=== PATIENT | female | born 1995 | race Caucasian/White ===

== ENCOUNTER 2016-03-21 10:56 | Emergency (ER) | payer BC, MEDICAID ==
[~2016-03-21 10:56] MED LIST: ACET50TA PO; IBUP-1114 PO; IBUP80TA PO; PRENATAL VITAMIN PO; STUACAP PO; TYLE500T78 PO
[2016-03-21] MEDS ORDERED: MORPHINE 2 MG/ML 1ML SYRINGE As Ordered ONE ×2 (11:47→13:43)
[2016-03-21] MEDS ORDERED: ONDANSETRON 4MG/2ML VIAL (J2405) As Ordered ONE (11:48)
[2016-03-21 12:08] LABS: BASO % 0.2 % (0.0-1.0); EOS # 0.1 K/mm3 (0.0-0.50); EOS % 1.3 % (0.0-3.0); LARGE UNSTAINED CELL # 0.2 K/mm3 (0.0-0.4); LARGE UNSTAINED CELL % 1.9 % (0.0-4.0); LYMPH # 1.3 K/mm3 (1.5-6.5); LYMPH % 12.9 % (24.0-44.0); MEAN CORPUSCULAR HEMOGLOBIN 28.6 pg (27.0-33.0); MEAN CORPUSCULAR HGB CONC 33.5 g/dl (32.0-36.5); MEAN CORPUSCULAR VOLUME 85.4 fl (80.0-96.0); MONO # 0.4 K/mm3 (0.0-0.8); MONO % 4.2 % (0.0-5.0); NEUTROPHILS # 8.2 K/mm3 (1.8-7.7); NEUTROPHILS % 79.5 % (36.0-66.0); PLATELET COUNT, AUTOMATED 357 k/mm3 (150-450); RED CELL DISTRIBUTION WIDTH 13.8 % (11.5-14.5); WHITE BLOOD COUNT 10.3 K/mm3 (4.0-10.0)
[2016-03-21 12:19] LABS: CONTROL LINE UCG INT CTR LINE PRESENT
[2016-03-21 12:21] LABS: ANION GAP 8 MEQ/L (8-16); BLOOD UREA NITROGEN 5 MG/DL (7-18); CALCIUM LEVEL 8.3 MG/DL (8.5-10.1); CARBON DIOXIDE LEVEL 28 MEQ/L (21-32); CHLORIDE LEVEL 100 MEQ/L (98-107); CREATININE FOR GFR 0.74 MG/DL (0.55-1.02); GLUCOSE, FASTING 107 MG/DL (70-105); POTASSIUM SERUM 3.5 MEQ/L (3.5-5.1); SODIUM LEVEL 136 MEQ/L (136-145)
--- NOTE | 2016-03-21 13:34 | REP ---
Clinical: Renal colic. Technique: Real time zambrano scale ultrasound examination using curved array transducer. Findings: With the exception of small renal cysts, the kidneys are normal in contour, size, and echogenicity without perinephric stranding, hydroureteronephrosis or nephrolithiasis. Right kidney measures 13.4 x 5.1 x 3.8 cm with approximately three cysts up to 12 mm. Left kidney measures to 0.6 x 4.6 x 5.9 cm with single 9 mm cyst. Bilateral ureteral jets to the bladder noted. The bladder itself is unremarkable. Incidental cholelithiasis. Impression: 1. Essentially normal bilateral kidneys with few scattered cysts. II. Cholelithiasis. Signed by Jermaine Vickers MD 03/21/2016 01:25 P
[2016-03-21] MEDS ORDERED: CIPROFLOXACIN/D5W 400 MG/200 ML BAG (J0744) As Ordered ONE (13:42)
[2016-03-21] MEDS ORDERED: ACETAMINOPHEN 325 MG TAB As Ordered ONE (15:44)
--- NOTE | 2016-03-21 16:00 | EDDOCDS ---
Physician Documentation [facility] Name: Kim Wells Age: 20 yrs Sex: Female : 1995 Arrival Date: 03/21/2016 Time: 10:56 Bed I3 / M3 Private MD: Ashu Barbosa Disposition: 03/21/16 15:25 Discharged to Home/Self Care. Impression: Low back pain - with renal cysts and [place] gallbladder stone, Urinary tract infection, site not specified. - Condition is Stable. - Discharge Instructions: Back Pain, Adult, Urinary Tract Infection, [id number], Back Pain, Adult, [id number]. - Prescriptions for Cipro 500 mg Oral Tablet - take 1 tablet by ORAL route every 12 hours; 14 tablet. Pyridium 200 mg Oral Tablet - take 1 tablet by ORAL route every 8 hours for 3 days; 9 tablet. Tylenol 325 mg Oral Tablet - take 2 tablet by ORAL route every 6 hours as needed; 1 bottle. Baclofen 10 mg Oral Tablet - take 1 tablet by ORAL route 3 times per day; 20 tablet. - Medication Reconciliation, Local Pharmacy Hours form. - Follow up: Ashu Barbosa DO; When: 1 - 2 days; Reason: Continuance of care. Follow up: Hema Cook DO; When: 4 - 5 days; Reason: Continuance of care. Follow up: Emergency Department; When: As needed; Reason: Worsening of conditions. - Problem is new. - Symptoms have improved. Historical: - Allergies: no known allergies; - Home Meds: 1. control patch - Social history: Smoking status: Patient uses tobacco products, light tobacco smoker. No barriers to communication noted, The patient speaks fluent Palauan. - Family history: Not pertinent. - : The pt / caregiver states he / she is not on anticoagulants. Home medication list is obtained from the patient. - Exposure Risk Screening:: None identified. 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 2 in. (157.48 cm) (R); 12:32 Pain 4/10; kr3 13:15 Temp 100.0; jam1 15:54 BP 114 / 62; Pulse 104; Resp 16; Temp 100.2; Pulse Ox 98% ; Pain 5/10; cjh 10:57 Body Mass Index 24.33 (60.33 kg, 157.48 cm) dd6 MDM: 11:39 Financial registration complete. lg 11:43 Ondansetron 4 mg IVP once ordered. dk1 11:43 IV Saline Lock ordered. dk1 11:44 morphine 2 mg IVP once ordered. dk1 11:44 NS 0.9% 1000 ml IV at bolus once ordered. dk1 11:45 Basic Metabolic Profile Ordered. EDMS 11:45 CBC with Diff Ordered. EDMS 11:45 Urinalysis Ordered. EDMS 11:45 UCG- In Lab Ordered. EDMS 11:45 Urine Culture Ordered. EDMS 12:25 Basic Metabolic Profile Reviewed. dk1 12:25 CBC with Diff Reviewed. dk1 12:25 Urinalysis Reviewed. dk1 12:25 UCG- In Lab Reviewed. dk1 12:26 US Renal Ordered. EDMS 13:36 morphine 2 mg IVP once ordered. dk1 13:36 Ciprofloxacin 400 mg IVPB at 200 mL/hr once over 60 mins ordered. dk1 13:36 -Blood Culture (Adults Only), peripheral from different site, or from device/port/PICC dk1 etc. if present ordered. 13:37 -Blood Culture Ordered. EDMS 13:54 [facility] Payment Agreement was scanned into [employer] and attached to record. lg 14:12 BLOOD CULTURES Ordered. EDMS 15:10 -Blood Culture (Adults Only), peripheral from different site, or from device/port/PICC [facility] etc. if present complete. 15:20 US Renal Reviewed. dk1 15:43 Acetaminophen Tablet 650 mg PO once ordered. dk1 Administered Medications: 12:01 Drug: Ondansetron 4 mg [ondansetron HCl 2 mg/mL intravenous solution (2 mL)] Route: kr3 IVP; Site: left antecubital; 12:32 Follow up: Response: Nausea is decreased kr3 12:01 Drug: morphine 2 mg [morphine 2 mg/mL intravenous cartridge (1 mL)] Route: IVP; Site: kr3 left antecubital; 12:32 Follow up: Pain 4/10 Adult; Response: Pain is decreased kr3 12:01 Drug: NS 0.9% 1000 ml [sodium chloride 0.9 % intravenous solution] Route: IV; Rate: kr3 bolus; Site: left antecubital; 13:46 Follow up: IV Status: Completed infusion; IV Intake: 1000ml kr3 13:50 Drug: morphine 2 mg Route: IVP; Site: left antecubital; [facility] 14:37 Follow up: Response: Confirmed pt not driving.; No Adverse Reaction; Pain is decreased; [facility] 06/27 14:10 Drug: Ciprofloxacin 400 mg [ciprofloxacin 400 mg/200 mL in 5 % dextrose intravenous kr3 piggyback] Route: IVPB; Rate: 200 mL/hr; Infused Over: 60 mins; Site: left antecubital; 15:52 Drug: Acetaminophen 650 mg [acetaminophen 325 mg tablet (2 tabs)] Route: PO; [facility] 15:57 Follow up: Response: Pt left department before re-evaluation is appropriate [facility] Signatures: Dispatcher [employer] EDRoshan Briceno RN RN jmk Scott, Debra, RN RN dls Ganter, LoriLee, Thanh Reg Tyrone Mcgarry PAOchoa PAOchoa [email or web address] Carmencita Mohr RN RN [facility] Polly Tony RN kr3 The chart was reviewed and I authenticate all verbal orders and agree with the evaluation and treatment provided.Corrections: (The following items were deleted from the chart) 11:12 11:10 Home Meds: none; vincenzo loya Attachments: 13:54 [facility] [place] Payment Agreement lg MTDD
--- NOTE | 2016-03-21 16:00 | EDDOCDS ---
Nurse's Notes [facility] Name: Kim Wells Age: 20 yrs Sex: Female : 1995 Arrival Date: 03/21/2016 Time: 10:56 Bed I3 / M3 Private MD: Ashu Barbosa Diagnosis: Low back pain-with renal cysts and [place] gallbladder stone;Urinary tract infection, site not specified Presentation: 03/21 11:08 Presenting complaint: Patient states: Pt presents with right sided flank pain x one dls week getting worse every day. Denies injury states she has urinary frequency. Acute neurological deficits are not present. Mechanism of Injury: No Mechanism of Injury. Adult Sepsis Screening: The patient does not have new or worsening altered mentation. Patient's respiratory rate is less than 22. Systolic blood pressure is greater than 100. Patient has a qSOFA score of 0- Negative Sepsis Screen. Suicide/Homicide risk assessment- the patient denies having any suicidal and/or homicidal ideations and does not present with any other emotional, behavioral or mental health complaints. 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 Transition of care: patient was not received from another setting of care. 11:08 Acuity: MACARIO Level 3 dls 11:08 Method Of Arrival: Walkin/Carried/Asstd dls Triage Assessment: 11:10 General: Appears uncomfortable, well developed, well nourished, Behavior is dls cooperative. Pain: Pain currently is 9 out of 10 on a pain scale. HIV screening NA for this visit Offered previously. 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 control patch - Social history: Smoking status: Patient uses tobacco products, light tobacco smoker. No barriers to communication noted, The patient speaks fluent Gabonese. - Family history: Not pertinent. - : The pt / caregiver states he / she is not on anticoagulants. Home medication list is obtained from the patient. - Exposure Risk Screening:: None identified. Screenin:06 Screening information is obtained from the patient. Fall risk: No risks identified. jmk Assistance ADL's: requires no assistance with activities of daily living. Abuse/DV Screen: The patient / caregiver reports he/she is: not in a situation that causes fear, pain or injury. Nutritional screening: No deficits noted. Advance Directives: Currently, there is no health care proxy. There is no active DNR order. There is no living will. There is no Power of Maintenance Planning Clerk. Advance directive information has not previously been placed in an [facility] medical record. home support is adequate. Assessment: 12:04 General: Appears Restless with discomfort. writhing about and mother assisting with jmk changed in position. Indicates right flank pain. Without redness , swelling or ecchymosis.. abd soft and non distended with bowel sounds present x 4. Odd affect, Immature presentation. GI: Abdomen is flat, non- distended Bowel sounds present X 4 quads. Abd is soft and non tender X 4 quads. Musculoskeletal: No deficits noted. 12:32 Reassessment: aroused from sleep easily, reports pain 4/10 but still having some nausea.kr3 13:27 General: Appears in no apparent distress, comfortable, Behavior is cooperative, [facility] requesting crackers for mother, blankets for self, blanket and crackers provided, water bottle noted at patient bedside, reviewed NPO, reports pain in right side after ultrasound 6/10, provider informed. 14:10 Reassessment: Patient appears in no apparent distress at this time. talking on phone, kr3 mother remains in room. 14:36 General: assisted with equipement to get oob to BR, gait steady, ambulates without [facility] assist required. 15:07 General: Appears in no apparent distress, comfortable, Behavior is appropriate for age, cjh cooperative, family at bedside, patient states feeling much better, awaiting dispo, gingerale provided per patient request. 15:54 General: reviewed discharge instructions with patient, obtained provider to answer [facility] questions regarding surgical consult, patient denies other needs, declines offer of additional assistance with discharge. Vital Signs: 10:57 BP 114 / 73; Pulse 105; Resp 18 S; Temp 99.3(O); Pulse Ox 99% on R/A; Weight 60.33 kg dd6 (R); Height 5 ft. 2 in. (157.48 cm) (R); 12:32 Pain 4/10; kr3 13:15 Temp 100.0; jam1 15:54 BP 114 / 62; Pulse 104; Resp 16; Temp 100.2; Pulse Ox 98% ; Pain 5/10; cjh 10:57 Body Mass Index 24.33 (60.33 kg, 157.48 cm) dd6 Vitals: 10:57 Log In Time: March 21, 2016 at 10:55. dd6 ED Course: 10:57 Patient visited by Himanshu Thompson, NEHEMIAH. dd6 10:57 Ashu Barbosa DO is Private Physician. dd6 10:57 Patient moved to Waiting dd6 10:58 Patient moved to Pre RCE dd6 11:09 Triage Initiated dls 11:33 Tyrone Mcgarry PA-C is PHCP. dk1 11:33 Nano Pearson MD is Attending Physician. dk1 11:33 Patient moved to Triage 3 kcs 11:34 Patient visited by Tyrone Mcgarry PA-C. dk1 11:46 Patient moved to I3 / M3 kcs 12:06 The patient / caregiver is instructed regarding the plan of care and ED course. jmk 12:06 Inserted saline lock: 20 gauge in left antecubital area. jmk 12:07 Patient visited by Roshan Delgadillo RN. jmk 12:32 Patient visited by Carmencita Castellanos PCA. jam1 12:40 Patient moved to Ultrasound sm5 13:05 Patient moved to I3 / M3 sm5 13:30 Patient visited by Carmencita Mohr RN. [facility] 13:50 US Renal Returned. EDMS 13:51 Patient visited by Carmencita Mohr RN. [facility] 13:54 [facility] Payment Agreement was scanned into [employer] and attached to record. lg 14:13 Patient visited by Carmencita Castellanos PCA. jam1 15:07 Patient visited by Carmencita Mohr RN. [facility] 15:15 PO fluids given. jam1 15:24 Ashu Barbosa DO is Referral Physician. dk1 15:25 Hema Cook DO is Referral Physician. dk1 15:54 Discontinued lock intact, bleeding controlled, pressure dressing applied, No [facility] redness/swelling at site. No procedures done that require assistance. Administered Medications: 12:01 Drug: Ondansetron 4 mg [ondansetron HCl 2 mg/mL intravenous solution (2 mL)] Route: kr3 IVP; Site: left antecubital; 12:32 Follow up: Response: Nausea is decreased kr3 12:01 Drug: morphine 2 mg [morphine 2 mg/mL intravenous cartridge (1 mL)] Route: IVP; Site: kr3 left antecubital; 12:32 Follow up: Pain 06/27 Adult; Response: Pain is decreased kr3 12:01 Drug: NS 0.9% 1000 ml [sodium chloride 0.9 % intravenous solution] Route: IV; Rate: kr3 bolus; Site: left antecubital; 13:46 Follow up: IV Status: Completed infusion; IV Intake: 1000ml kr3 13:50 Drug: morphine 2 mg Route: IVP; Site: left antecubital; [facility] 14:37 Follow up: Response: Confirmed pt not driving.; No Adverse Reaction; Pain is decreased; [facility] 06/27 14:10 Drug: Ciprofloxacin 400 mg [ciprofloxacin 400 mg/200 mL in 5 % dextrose intravenous kr3 piggyback] Route: IVPB; Rate: 200 mL/hr; Infused Over: 60 mins; Site: left antecubital; 15:52 Drug: Acetaminophen 650 mg [acetaminophen 325 mg tablet (2 tabs)] Route: PO; [facility] 15:57 Follow up: Response: Pt left department before re-evaluation is appropriate [facility] Intake: 13:46 IV: 1000.00ml; Total: 1000.00ml. kr3 Order Results: Lab Order: Basic Metabolic Profile; SPEC'M 03/21/16 11:56 Test: GLUCOSE, FASTING; Value: 107; Range: 70-105; Abnormal: Above high normal; Units: MG/DL; Status: F Test: BLOOD UREA NITROGEN; Value: 5; Range: 7-18; Abnormal: Below low normal; Units: MG/DL; Status: F Test: CREATININE FOR GFR; Value: 0.74; Range: 0.55-1.02; Units: MG/DL; Status: F Test: SODIUM LEVEL; Value: 136; Range: 136-145; Units: MEQ/L; Status: F Test: POTASSIUM SERUM; Value: 3.5; Range: 3.5-5.1; Units: MEQ/L; Status: F Test: CHLORIDE LEVEL; Value: 100; Range: 98-107; Units: MEQ/L; Status: F Test: CARBON DIOXIDE LEVEL; Value: 28; Range: 21-32; Units: MEQ/L; Status: F Test: ANION GAP; Value: 8; Range: 8-16; Units: MEQ/L; Status: F Test: CALCIUM LEVEL; Value: 8.3; Range: 8.5-10.1; Abnormal: Below low normal; Units: MG/DL; Status: F Lab Order: CBC with Diff; SPEC'M 03/21/16 11:56 Test: WHITE BLOOD COUNT; Value: 10.3; Range: 4.0-10.0; Abnormal: Above high normal; Units: K/mm3; Status: F Test: RED BLOOD COUNT; Value: 4.36; Range: 4.00-5.40; Units: M/mm3; Status: F Test: HEMOGLOBIN; Value: 12.5; Range: 12.0-16.0; Units: g/dl; Status: F Test: HEMATOCRIT; Value: 37.3; Range: 36.0-47.0; Units: %; Status: F Test: MEAN CORPUSCULAR VOLUME; Value: 85.4; Range: 80.0-96.0; Units: fl; Status: F Test: MEAN CORPUSCULAR HEMOGLOBIN; Value: 28.6; Range: 27.0-33.0; Units: pg; Status: F Test: MEAN CORPUSCULAR HGB CONC; Value: 33.5; Range: 32.0-36.5; Units: g/dl; Status: F Test: RED CELL DISTRIBUTION WIDTH; Value: 13.8; Range: 11.5-14.5; Units: %; Status: F Test: PLATELET COUNT, AUTOMATED; Value: 357; Range: 150-450; Units: k/mm3; Status: F Test: NEUTROPHILS %; Value: 79.5; Range: 36.0-66.0; Abnormal: Above high normal; Units: %; Status: F Test: LYMPH %; Value: 12.9; Range: 24.0-44.0; Abnormal: Below low normal; Units: %; Status: F Test: MONO %; Value: 4.2; Range: 0.0-5.0; Units: %; Status: F Test: EOS %; Value: 1.3; Range: 0.0-3.0; Units: %; Status: F Test: BASO %; Value: 0.2; Range: 0.0-1.0; Units: %; Status: F Test: LARGE UNSTAINED CELL %; Value: 1.9; Range: 0.0-4.0; Units: %; Status: F Test: NEUTROPHILS #; Value: 8.2; Range: 1.8-7.7; Abnormal: Above high normal; Units: K/mm3; Status: F Test: LYMPH #; Value: 1.3; Range: 1.5-6.5; Abnormal: Below low normal; Units: K/mm3; Status: F Test: MONO #; Value: 0.4; Range: 0.0-0.8; Units: K/mm3; Status: F Test: EOS #; Value: 0.1; Range: 0.0-0.50; Units: K/mm3; Status: F Test: BASO #; Value: 0.0; Range: 0.0-0.2; Units: K/mm3; Status: F Test: LARGE UNSTAINED CELL #; Value: 0.2; Range: 0.0-0.4; Units: K/mm3; Status: F Lab Order: Urinalysis; SPEC'M 03/21/16 11:56 Test: APPEARANCE, URINE; Value: CLOUDY; Range: CLEAR; Abnormal: Above high normal; Status: F Test: COLOR, URINE; Value: YELLOW; Range: YELLOW; Status: F Test: PH,URINE; Value: 6.0; Range: 5.0-9.0; Units: UNITS; Status: F Test: SPECIFIC GRAVITY URINE AUTO; Value: 1.013; Range: 1.002-1.035; Status: F Test: PROTEIN, URINE AUTO; Value: 1+; Range: NEGATIVE; Abnormal: Above high normal; Units: mg/dL; Status: F Test: GLUCOSE, URINE (UA) AUTO; Value: NEGATIVE; Range: NEGATIVE; Units: mg/dL; Status: F Test: KETONE, URINE AUTO; Value: NEGATIVE; Range: NEGATIVE; Units: mg/dL; Status: F Test: UROBILINOGEN, URINE AUTO; Value: 0.2; Range: 0.0-2.0; Units: mg/dL; Status: F Test: BILIRUBIN, URINE AUTO; Value: NEGATIVE; Range: NEGATIVE; Status: F Test: NITRITE, URINE AUTO; Value: NEGATIVE; Range: NEGATIVE; Status: F Test: LEUKOCYTE ESTERASE, URINE AUTO; Value: 3+; Range: NEGATIVE; Abnormal: Above high normal; Status: F Test: BLOOD, URINE BLOOD; Value: 1+; Range: NEGATIVE; Abnormal: Above high normal; Status: F Test: SPERM, URINE AUTO; Range: NONE; Status: I Test: WBC, URINE AUTO; Value: TNTC; Range: 0-3; Abnormal: Above high normal; Units: /HPF; Status: F Test: RBC, URINE AUTO; Value: 38; Range: 0-3; Abnormal: Above high normal; Units: /HPF; Status: F Test: BACTERIA, URINE AUTO; Value: 3+; Range: NEGATIVE; Abnormal: Above high normal; Status: F Test: SQUAMOUS EPITHELIAL CELL UR AU; Value: 10; Range: 0-6; Units: /HPF; Status: F Test: MUCUS, URINE; Value: SMALL; Range: NEGATIVE; Status: F Test: HYALINE CAST, URINE AUTO; Value: 0; Range: 0-1; Units: /LPF; Status: F Lab Order: UCG- In Lab; SPEC'M 03/21/16 11:56 Test: URINE PREG TEST; Value: NEGATIVE; Range: NEGATIVE; Status: F Radiology Order: US Renal Test: US Renal REASON FOR EXAMINATION: Renal colic; Clinical: Renal colic.; ; Technique: Real time zambrano scale ultrasound examination using curved array; transducer.; ; Findings:; With the exception of small renal cysts, the kidneys are normal in contour, size,; and echogenicity without perinephric stranding, hydroureteronephrosis or; nephrolithiasis. Right kidney measures 13.4 x 5.1 x 3.8 cm with approximately; three cysts up to 12 mm. Left kidney measures to 0.6 x 4.6 x 5.9 cm with single; 9 mm cyst. Bilateral ureteral jets to the bladder noted. The bladder itself is; unremarkable.; ; Incidental cholelithiasis.; ; Impression:; 1. Essentially normal bilateral kidneys with few scattered cysts.; II. Cholelithiasis.; ; ; Signed by; Jermaine Vickers MD 03/21/2016 01:25 P; Outcome: 14:10 Ultrasound Study completed. kr3 15:25 Discharge ordered by Provider. dk1 15:54 Discharge Assessment: Patient awake, alert and oriented x 3. No cognitive and/or cjh functional deficits noted. Patient verbalized understanding of disposition instructions. patient administered narcotics - yes. Pt provided with safe discharge. The following High Risk Discharge criteria are identified: None. Discharged to home ambulatory, with parent. with friend. Condition: good Condition: stable Condition: improved. Discharge instructions given to patient, Instructed on discharge instructions, follow up and referral plans. medication usage, Demonstrated understanding of instructions, medications, Pt was receptive of discharge instructions/ teaching. Prescriptions given X 4. Property :Personal belongings accompany Pt. 15:59 Patient left the ED. [facility] Signatures: Dispatcher [employer] EDMS Estee Lamar, RN RN Roshan WareRN RN Do Brunson RN RN Carmencita Freeman, TAMPING MACHINE OPERATOR TAMPING MACHINE OPERATOR jam1 Lemuel Mario, Reg Reg lg Charisse Barahona sm5 Polly Tony,RN RN kr3 Tyrone Mcgarry, PA-C PA-C dk1 Himanshu Thompson, TAMPING MACHINE OPERATOR TAMPING MACHINE OPERATOR dd6 Carmencita Mohr,RN RN [facility] Corrections: (The following items were deleted from the chart) 11:12 11:10 Home Meds: none; dls dls 13:29 13:27 General: Appears in no apparent distress, comfortable, Behavior is cooperative, [facility] requesting crackers for mother, blankets for self, reports pain in right side after ultrasound 08/27, provider informed. [facility] MTDD
--- NOTE | 2016-03-23 17:00 | EDDOCDS ---
Physician Documentation [facility] Name: Kim Wells Age: 20 yrs Sex: Female : 1995 Arrival Date: 03/21/2016 Time: 10:56 Bed I3 / M3 Private MD: Ashu Barbosa Disposition: 03/21/16 15:25 Discharged to Home/Self Care. Impression: Low back pain - with renal cysts and [place] gallbladder stone, Urinary tract infection, site not specified. - Condition is Stable. - Discharge Instructions: Back Pain, Adult, Urinary Tract Infection, [id number], Back Pain, Adult, [id number]. - Prescriptions for Cipro 500 mg Oral Tablet - take 1 tablet by ORAL route every 12 hours; 14 tablet. Pyridium 200 mg Oral Tablet - take 1 tablet by ORAL route every 8 hours for 3 days; 9 tablet. Tylenol 325 mg Oral Tablet - take 2 tablet by ORAL route every 6 hours as needed; 1 bottle. Baclofen 10 mg Oral Tablet - take 1 tablet by ORAL route 3 times per day; 20 tablet. - Medication Reconciliation, Local Pharmacy Hours form. - Follow up: Ashu Barbosa DO; When: 1 - 2 days; Reason: Continuance of care. Follow up: Hema Cook DO; When: 4 - 5 days; Reason: Continuance of care. Follow up: Emergency Department; When: As needed; Reason: Worsening of conditions. - Problem is new. - Symptoms have improved. Historical: - Allergies: no known allergies; - Home Meds: 1. control patch - Social history: Smoking status: Patient uses tobacco products, light tobacco smoker. No barriers to communication noted, The patient speaks fluent Bengali. - Family history: Not pertinent. - : The pt / caregiver states he / she is not on anticoagulants. Home medication list is obtained from the patient. - Exposure Risk Screening:: None identified. 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 2 in. (157.48 cm) (R); 12:32 Pain 4/10; kr3 13:15 Temp 100.0; jam1 15:54 BP 114 / 62; Pulse 104; Resp 16; Temp 100.2; Pulse Ox 98% ; Pain 5/10; cjh 10:57 Body Mass Index 24.33 (60.33 kg, 157.48 cm) dd6 MDM: 11:39 Financial registration complete. lg 11:43 Ondansetron 4 mg IVP once ordered. dk1 11:43 IV Saline Lock ordered. dk1 11:44 morphine 2 mg IVP once ordered. dk1 11:44 NS 0.9% 1000 ml IV at bolus once ordered. dk1 11:45 Basic Metabolic Profile Ordered. EDMS 11:45 CBC with Diff Ordered. EDMS 11:45 Urinalysis Ordered. EDMS 11:45 UCG- In Lab Ordered. EDMS 11:45 Urine Culture Ordered. EDMS 12:25 Basic Metabolic Profile Reviewed. dk1 12:25 CBC with Diff Reviewed. dk1 12:25 Urinalysis Reviewed. dk1 12:25 UCG- In Lab Reviewed. dk1 12:26 US Renal Ordered. EDMS 13:36 morphine 2 mg IVP once ordered. dk1 13:36 Ciprofloxacin 400 mg IVPB at 200 mL/hr once over 60 mins ordered. dk1 13:36 -Blood Culture (Adults Only), peripheral from different site, or from device/port/PICC dk1 etc. if present ordered. 13:37 -Blood Culture Ordered. EDMS 13:54 [facility] Payment Agreement was scanned into [employer]ated[employer] and attached to record. lg 14:12 BLOOD CULTURES Ordered. EDMS 15:10 -Blood Culture (Adults Only), peripheral from different site, or from device/port/PICC [facility] etc. if present complete. 15:20 US Renal Reviewed. dk1 15:43 Acetaminophen Tablet 650 mg PO once ordered. dk1 03/22 06:10 T-Sheet-- Draft Copy was scanned into [employer]ated[employer] and attached to record. lja Administered Medications: 03/21 12:01 Drug: Ondansetron 4 mg [ondansetron HCl 2 mg/mL intravenous solution (2 mL)] Route: kr3 IVP; Site: left antecubital; 12:32 Follow up: Response: Nausea is decreased kr3 12:01 Drug: morphine 2 mg [morphine 2 mg/mL intravenous cartridge (1 mL)] Route: IVP; Site: kr3 left antecubital; 12:32 Follow up: Pain 06/27 Adult; Response: Pain is decreased [facility] 12:01 Drug: NS 0.9% 1000 ml [sodium chloride 0.9 % intravenous solution] Route: IV; Rate: kr3 bolus; Site: left antecubital; 13:46 Follow up: IV Status: Completed infusion; IV Intake: 1000ml kr3 13:50 Drug: morphine 2 mg Route: IVP; Site: left antecubital; [facility] 14:37 Follow up: Response: Confirmed pt not driving.; No Adverse Reaction; Pain is decreased; [facility] 06/27 14:10 Drug: Ciprofloxacin 400 mg [ciprofloxacin 400 mg/200 mL in 5 % dextrose intravenous kr3 piggyback] Route: IVPB; Rate: 200 mL/hr; Infused Over: 60 mins; Site: left antecubital; 15:52 Drug: Acetaminophen 650 mg [acetaminophen 325 mg tablet (2 tabs)] Route: PO; [facility] 15:57 Follow up: Response: Pt left department before re-evaluation is appropriate [facility] Signatures: Dispatcher [employer] EDMS Roshan Delgadillo RN RN jmk Scott, Debra, RN RN dls Ganter, LoriLee, Reg Reg lg Keyes, David PA-Scooby PA-Scooby [email or web address] Carmencita Mohr RN RN [facility] Shaji, Polly Ramirez RN kr3 The chart was reviewed and I authenticate all verbal orders and agree with the evaluation and treatment provided.Corrections: (The following items were deleted from the chart) 11:12 11:10 Home Meds: none; vincenzo loya Attachments: 13:54 [facility] Payment Agreement lg 03/22 06:10 T-Sheet-- Draft Copy demetrius Chart Complete MTDD
--- NOTE | 2016-03-23 17:00 | EDDOCDS ---
Physician Documentation [facility] Name: Kim Wells Age: 20 yrs Sex: Female : 1995 Arrival Date: 03/21/2016 Time: 10:56 Bed I3 / M3 Private MD: Ashu Barbosa Disposition: 03/21/16 15:25 Discharged to Home/Self Care. Impression: Low back pain - with renal cysts and [place] gallbladder stone, Urinary tract infection, site not specified. - Condition is Stable. - Discharge Instructions: Back Pain, Adult, Urinary Tract Infection, [id number], Back Pain, Adult, [id number]. - Prescriptions for Cipro 500 mg Oral Tablet - take 1 tablet by ORAL route every 12 hours; 14 tablet. Pyridium 200 mg Oral Tablet - take 1 tablet by ORAL route every 8 hours for 3 days; 9 tablet. Tylenol 325 mg Oral Tablet - take 2 tablet by ORAL route every 6 hours as needed; 1 bottle. Baclofen 10 mg Oral Tablet - take 1 tablet by ORAL route 3 times per day; 20 tablet. - Medication Reconciliation, Local Pharmacy Hours form. - Follow up: Ashu Barbosa DO; When: 1 - 2 days; Reason: Continuance of care. Follow up: eHma Cook DO; When: 4 - 5 days; Reason: Continuance of care. Follow up: Emergency Department; When: As needed; Reason: Worsening of conditions. - Problem is new. - Symptoms have improved. Historical: - Allergies: no known allergies; - Home Meds: 1. control patch - Social history: Smoking status: Patient uses tobacco products, light tobacco smoker. No barriers to communication noted, The patient speaks fluent Slovak. - Family history: Not pertinent. - : The pt / caregiver states he / she is not on anticoagulants. Home medication list is obtained from the patient. - Exposure Risk Screening:: None identified. 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 2 in. (157.48 cm) (R); 12:32 Pain 4/10; kr3 13:15 Temp 100.0; jam1 15:54 BP 114 / 62; Pulse 104; Resp 16; Temp 100.2; Pulse Ox 98% ; Pain 5/10; cjh 10:57 Body Mass Index 24.33 (60.33 kg, 157.48 cm) dd6 MDM: 11:39 Financial registration complete. lg 11:43 Ondansetron 4 mg IVP once ordered. dk1 11:43 IV Saline Lock ordered. dk1 11:44 morphine 2 mg IVP once ordered. dk1 11:44 NS 0.9% 1000 ml IV at bolus once ordered. dk1 11:45 Basic Metabolic Profile Ordered. EDMS 11:45 CBC with Diff Ordered. EDMS 11:45 Urinalysis Ordered. EDMS 11:45 UCG- In Lab Ordered. EDMS 11:45 Urine Culture Ordered. EDMS 12:25 Basic Metabolic Profile Reviewed. dk1 12:25 CBC with Diff Reviewed. dk1 12:25 Urinalysis Reviewed. dk1 12:25 UCG- In Lab Reviewed. dk1 12:26 US Renal Ordered. EDMS 13:36 morphine 2 mg IVP once ordered. dk1 13:36 Ciprofloxacin 400 mg IVPB at 200 mL/hr once over 60 mins ordered. dk1 13:36 -Blood Culture (Adults Only), peripheral from different site, or from device/port/PICC dk1 etc. if present ordered. 13:37 -Blood Culture Ordered. EDMS 13:54 [facility] Payment Agreement was scanned into [employer] and attached to record. lg 14:12 BLOOD CULTURES Ordered. EDMS 15:10 -Blood Culture (Adults Only), peripheral from different site, or from device/port/PICC [facility] etc. if present complete. 15:20 US Renal Reviewed. dk1 15:43 Acetaminophen Tablet 650 mg PO once ordered. dk1 03/22 06:10 T-Sheet-- Draft Copy was scanned into [employer] and attached to record. lja Administered Medications: 03/21 12:01 Drug: Ondansetron 4 mg [ondansetron HCl 2 mg/mL intravenous solution (2 mL)] Route: kr3 IVP; Site: left antecubital; 12:32 Follow up: Response: Nausea is decreased kr3 12:01 Drug: morphine 2 mg [morphine 2 mg/mL intravenous cartridge (1 mL)] Route: IVP; Site: kr3 left antecubital; 12:32 Follow up: Pain 06/27 Adult; Response: Pain is decreased [facility] 12:01 Drug: NS 0.9% 1000 ml [sodium chloride 0.9 % intravenous solution] Route: IV; Rate: kr3 bolus; Site: left antecubital; 13:46 Follow up: IV Status: Completed infusion; IV Intake: 1000ml kr3 13:50 Drug: morphine 2 mg Route: IVP; Site: left antecubital; [facility] 14:37 Follow up: Response: Confirmed pt not driving.; No Adverse Reaction; Pain is decreased; [facility] 06/27 14:10 Drug: Ciprofloxacin 400 mg [ciprofloxacin 400 mg/200 mL in 5 % dextrose intravenous kr3 piggyback] Route: IVPB; Rate: 200 mL/hr; Infused Over: 60 mins; Site: left antecubital; 15:52 Drug: Acetaminophen 650 mg [acetaminophen 325 mg tablet (2 tabs)] Route: PO; [facility] 15:57 Follow up: Response: Pt left department before re-evaluation is appropriate [facility] Signatures: Dispatcher [employer] EDMS Roshan Delgadillo RN RN jmk Scott, Debra, RN RN dls Ganter, LoriLee, Reg Reg lg Keyes, David PA-Scooby PA-Scooby [email or web address] Carmencita Mohr RN RN [facility] Shaji, Polly Ramirez RN kr3 The chart was reviewed and I authenticate all verbal orders and agree with the evaluation and treatment provided.Corrections: (The following items were deleted from the chart) 11:12 11:10 Home Meds: none; vincenzo loya Attachments: 13:54 [facility] Payment Agreement lg 03/22 06:10 T-Sheet-- Draft Copy demetrius Chart Complete MTDD
--- NOTE | 2016-03-23 17:00 | EDDOCDS ---
Nurse's Notes [facility] Name: Kim Wells Age: 20 yrs Sex: Female : 1995 Arrival Date: 03/21/2016 Time: 10:56 Bed I3 / M3 Private MD: Ashu Barbosa Diagnosis: Low back pain-with renal cysts and [place] gallbladder stone;Urinary tract infection, site not specified Presentation: 03/21 11:08 Presenting complaint: Patient states: Pt presents with right sided flank pain x one dls week getting worse every day. Denies injury states she has urinary frequency. Acute neurological deficits are not present. Mechanism of Injury: No Mechanism of Injury. Adult Sepsis Screening: The patient does not have new or worsening altered mentation. Patient's respiratory rate is less than 22. Systolic blood pressure is greater than 100. Patient has a qSOFA score of 0- Negative Sepsis Screen. Suicide/Homicide risk assessment- the patient denies having any suicidal and/or homicidal ideations and does not present with any other emotional, behavioral or mental health complaints. Status: Patient is not a protective services case worker or dependent. Transition of care: patient was not received from another setting of care. 11:08 Acuity: MACARIO Level 3 dls 11:08 Method Of Arrival: Walkin/Carried/Asstd dls Triage Assessment: 11:10 General: Appears uncomfortable, well developed, well nourished, Behavior is dls cooperative. Pain: Pain currently is 9 out of 10 on a pain scale. HIV screening NA for this visit Offered previously. COUNTER CHECKER: 11:10 LMP 02/18/2016 dls Historical: - Allergies: no known allergies; - Home Meds: 1. control patch - Social history: Smoking status: Patient uses tobacco products, light tobacco smoker. No barriers to communication noted, The patient speaks fluent Congolese. - Family history: Not pertinent. - : The pt / caregiver states he / she is not on anticoagulants. Home medication list is obtained from the patient. - Exposure Risk Screening:: None identified. Screenin:06 Screening information is obtained from the patient. Fall risk: No risks identified. jmk Assistance ADL's: requires no assistance with activities of daily living. Abuse/DV Screen: The patient / caregiver reports he/she is: not in a situation that causes fear, pain or injury. Nutritional screening: No deficits noted. Advance Directives: Currently, there is no health care proxy. There is no active DNR order. There is no living will. There is no Power of Physical Therapy Manager. Advance directive information has not previously been placed in an [facility] medical record. home support is adequate. Assessment: 12:04 General: Appears Restless with discomfort. writhing about and mother assisting with jmk changed in position. Indicates right flank pain. Without redness , swelling or ecchymosis.. abd soft and non distended with bowel sounds present x 4. Odd affect, Immature presentation. GI: Abdomen is flat, non- distended Bowel sounds present X 4 quads. Abd is soft and non tender X 4 quads. Musculoskeletal: No deficits noted. 12:32 Reassessment: aroused from sleep easily, reports pain 4/10 but still having some nausea.kr3 13:27 General: Appears in no apparent distress, comfortable, Behavior is cooperative, [facility] requesting crackers for mother, blankets for self, blanket and crackers provided, water bottle noted at patient bedside, reviewed NPO, reports pain in right side after ultrasound 6/10, provider informed. 14:10 Reassessment: Patient appears in no apparent distress at this time. talking on phone, kr3 mother remains in room. 14:36 General: assisted with equipement to get oob to BR, gait steady, ambulates without [facility] assist required. 15:07 General: Appears in no apparent distress, comfortable, Behavior is appropriate for age, cjh cooperative, family at bedside, patient states feeling much better, awaiting dispo, gingerale provided per patient request. 15:54 General: reviewed discharge instructions with patient, obtained provider to answer [facility] questions regarding surgical consult, patient denies other needs, declines offer of additional assistance with discharge. Vital Signs: 10:57 BP 114 / 73; Pulse 105; Resp 18 S; Temp 99.3(O); Pulse Ox 99% on R/A; Weight 60.33 kg dd6 (R); Height 5 ft. 2 in. (157.48 cm) (R); 12:32 Pain 4/10; kr3 13:15 Temp 100.0; jam1 15:54 BP 114 / 62; Pulse 104; Resp 16; Temp 100.2; Pulse Ox 98% ; Pain 5/10; cjh 10:57 Body Mass Index 24.33 (60.33 kg, 157.48 cm) dd6 Vitals: 10:57 Log In Time: March 21, 2016 at 10:55. dd6 ED Course: 10:57 Patient visited by Himanshu Thompson PCA. dd6 10:57 Ashu Barbosa DO is Private Physician. dd6 10:57 Patient moved to Waiting dd6 10:58 Patient moved to Pre RCE dd6 11:09 Triage Initiated dls 11:33 Tyrone Mcgarry PA-C is PHCP. dk1 11:33 Nano Pearson MD is Attending Physician. dk1 11:33 Patient moved to Triage 3 kcs 11:34 Patient visited by Tyrone Mcgarry PA-C. dk1 11:46 Patient moved to I3 / M3 kcs 12:06 The patient / caregiver is instructed regarding the plan of care and ED course. jmk 12:06 Inserted saline lock: 20 gauge in left antecubital area. jmk 12:07 Patient visited by Roshan Delgadillo RN. jmk 12:32 Patient visited by Carmencita Castellanos PCA. jam1 12:40 Patient moved to Ultrasound sm5 13:05 Patient moved to I3 / M3 sm5 13:30 Patient visited by Carmencita Mohr RN. [facility] 13:50 US Renal Returned. EDMS 13:51 Patient visited by Carmencita Mohr RN. [facility] 13:54 [facility] Payment Agreement was scanned into [employer] and attached to record. lg 14:13 Patient visited by Carmencita Castellanos PCA. jam1 15:07 Patient visited by Carmencita Mohr RN. [facility] 15:15 PO fluids given. jam1 15:24 Ashu Barbosa DO is Referral Physician. dk1 15:25 Hema Cook DO is Referral Physician. dk1 15:54 Discontinued lock intact, bleeding controlled, pressure dressing applied, No [facility] redness/swelling at site. No procedures done that require assistance. 03/22 06:10 T-Sheet-- Draft Copy was scanned into [employer] and attached to record. lja Administered Medications: 03/21 12:01 Drug: Ondansetron 4 mg [ondansetron HCl 2 mg/mL intravenous solution (2 mL)] Route: kr3 IVP; Site: left antecubital; 12:32 Follow up: Response: Nausea is decreased kr3 12:01 Drug: morphine 2 mg [morphine 2 mg/mL intravenous cartridge (1 mL)] Route: IVP; Site: kr3 left antecubital; 12:32 Follow up: Pain 410 Adult; Response: Pain is decreased kr3 12:01 Drug: NS 0.9% 1000 ml [sodium chloride 0.9 % intravenous solution] Route: IV; Rate: kr3 bolus; Site: left antecubital; 13:46 Follow up: IV Status: Completed infusion; IV Intake: 1000ml kr3 13:50 Drug: morphine 2 mg Route: IVP; Site: left antecubital; [facility] 14:37 Follow up: Response: Confirmed pt not driving.; No Adverse Reaction; Pain is decreased; [facility] 06/27 14:10 Drug: Ciprofloxacin 400 mg [ciprofloxacin 400 mg/200 mL in 5 % dextrose intravenous kr3 piggyback] Route: IVPB; Rate: 200 mL/hr; Infused Over: 60 mins; Site: left antecubital; 15:52 Drug: Acetaminophen 650 mg [acetaminophen 325 mg tablet (2 tabs)] Route: PO; [facility] 15:57 Follow up: Response: Pt left department before re-evaluation is appropriate [facility] Intake: 13:46 IV: 1000.00ml; Total: 1000.00ml. kr3 Order Results: Lab Order: Basic Metabolic Profile; SPEC'M 03/21/16 11:56 Test: GLUCOSE, FASTING; Value: 107; Range: 70-105; Abnormal: Above high normal; Units: MG/DL; Status: F Test: BLOOD UREA NITROGEN; Value: 5; Range: 7-18; Abnormal: Below low normal; Units: MG/DL; Status: F Test: CREATININE FOR GFR; Value: 0.74; Range: 0.55-1.02; Units: MG/DL; Status: F Test: SODIUM LEVEL; Value: 136; Range: 136-145; Units: MEQ/L; Status: F Test: POTASSIUM SERUM; Value: 3.5; Range: 3.5-5.1; Units: MEQ/L; Status: F Test: CHLORIDE LEVEL; Value: 100; Range: 98-107; Units: MEQ/L; Status: F Test: CARBON DIOXIDE LEVEL; Value: 28; Range: 21-32; Units: MEQ/L; Status: F Test: ANION GAP; Value: 8; Range: 8-16; Units: MEQ/L; Status: F Test: CALCIUM LEVEL; Value: 8.3; Range: 8.5-10.1; Abnormal: Below low normal; Units: MG/DL; Status: F Lab Order: CBC with Diff; SPEC'M 03/21/16 11:56 Test: WHITE BLOOD COUNT; Value: 10.3; Range: 4.0-10.0; Abnormal: Above high normal; Units: K/mm3; Status: F Test: RED BLOOD COUNT; Value: 4.36; Range: 4.00-5.40; Units: M/mm3; Status: F Test: HEMOGLOBIN; Value: 12.5; Range: 12.0-16.0; Units: g/dl; Status: F Test: HEMATOCRIT; Value: 37.3; Range: 36.0-47.0; Units: %; Status: F Test: MEAN CORPUSCULAR VOLUME; Value: 85.4; Range: 80.0-96.0; Units: fl; Status: F Test: MEAN CORPUSCULAR HEMOGLOBIN; Value: 28.6; Range: 27.0-33.0; Units: pg; Status: F Test: MEAN CORPUSCULAR HGB CONC; Value: 33.5; Range: 32.0-36.5; Units: g/dl; Status: F Test: RED CELL DISTRIBUTION WIDTH; Value: 13.8; Range: 11.5-14.5; Units: %; Status: F Test: PLATELET COUNT, AUTOMATED; Value: 357; Range: 150-450; Units: k/mm3; Status: F Test: NEUTROPHILS %; Value: 79.5; Range: 36.0-66.0; Abnormal: Above high normal; Units: %; Status: F Test: LYMPH %; Value: 12.9; Range: 24.0-44.0; Abnormal: Below low normal; Units: %; Status: F Test: MONO %; Value: 4.2; Range: 0.0-5.0; Units: %; Status: F Test: EOS %; Value: 1.3; Range: 0.0-3.0; Units: %; Status: F Test: BASO %; Value: 0.2; Range: 0.0-1.0; Units: %; Status: F Test: LARGE UNSTAINED CELL %; Value: 1.9; Range: 0.0-4.0; Units: %; Status: F Test: NEUTROPHILS #; Value: 8.2; Range: 1.8-7.7; Abnormal: Above high normal; Units: K/mm3; Status: F Test: LYMPH #; Value: 1.3; Range: 1.5-6.5; Abnormal: Below low normal; Units: K/mm3; Status: F Test: MONO #; Value: 0.4; Range: 0.0-0.8; Units: K/mm3; Status: F Test: EOS #; Value: 0.1; Range: 0.0-0.50; Units: K/mm3; Status: F Test: BASO #; Value: 0.0; Range: 0.0-0.2; Units: K/mm3; Status: F Test: LARGE UNSTAINED CELL #; Value: 0.2; Range: 0.0-0.4; Units: K/mm3; Status: F Lab Order: Urinalysis; SPEC'M 03/21/16 11:56 Test: APPEARANCE, URINE; Value: CLOUDY; Range: CLEAR; Abnormal: Above high normal; Status: F Test: COLOR, URINE; Value: YELLOW; Range: YELLOW; Status: F Test: PH,URINE; Value: 6.0; Range: 5.0-9.0; Units: UNITS; Status: F Test: SPECIFIC GRAVITY URINE AUTO; Value: 1.013; Range: 1.002-1.035; Status: F Test: PROTEIN, URINE AUTO; Value: 1+; Range: NEGATIVE; Abnormal: Above high normal; Units: mg/dL; Status: F Test: GLUCOSE, URINE (UA) AUTO; Value: NEGATIVE; Range: NEGATIVE; Units: mg/dL; Status: F Test: KETONE, URINE AUTO; Value: NEGATIVE; Range: NEGATIVE; Units: mg/dL; Status: F Test: UROBILINOGEN, URINE AUTO; Value: 0.2; Range: 0.0-2.0; Units: mg/dL; Status: F Test: BILIRUBIN, URINE AUTO; Value: NEGATIVE; Range: NEGATIVE; Status: F Test: NITRITE, URINE AUTO; Value: NEGATIVE; Range: NEGATIVE; Status: F Test: LEUKOCYTE ESTERASE, URINE AUTO; Value: 3+; Range: NEGATIVE; Abnormal: Above high normal; Status: F Test: BLOOD, URINE BLOOD; Value: 1+; Range: NEGATIVE; Abnormal: Above high normal; Status: F Test: SPERM, URINE AUTO; Range: NONE; Status: I Test: WBC, URINE AUTO; Value: TNTC; Range: 0-3; Abnormal: Above high normal; Units: /HPF; Status: F Test: RBC, URINE AUTO; Value: 38; Range: 0-3; Abnormal: Above high normal; Units: /HPF; Status: F Test: BACTERIA, URINE AUTO; Value: 3+; Range: NEGATIVE; Abnormal: Above high normal; Status: F Test: SQUAMOUS EPITHELIAL CELL UR AU; Value: 10; Range: 0-6; Units: /HPF; Status: F Test: MUCUS, URINE; Value: SMALL; Range: NEGATIVE; Status: F Test: HYALINE CAST, URINE AUTO; Value: 0; Range: 0-1; Units: /LPF; Status: F Lab Order: Urine Culture; SPEC'M 03/21/16 11:56 Test: URINE CULTURE; Value: ORGANISM 1: ESCHERICHIA COLI; Status: F Test: URINE CULTURE; Value: ESCHERICHIA COLI; Status: F Test: URINE CULTURE; Value: COLONY COUNT CFU/ml >100,000; Status: F Test: URINE CULTURE; Value: GRAM NEG SENSI - VITEK 80; Status: F Test: URINE CULTURE; Value: Method: VIT2; Status: F Test: URINE CULTURE; Value: EXTD BRD SPCTRM BETA LACTAMASE -; Status: F Test: URINE CULTURE; Value: TRIMETHOPRIM/SULFAMETHOXAZOLE <=20 S; Status: F Test: URINE CULTURE; Value: AMPICILLIN <=2 S; Status: F Test: URINE CULTURE; Value: GENTAMICIN <=1 S; Status: F Test: URINE CULTURE; Value: NITROFURANTOIN <=16 S; Status: F Test: URINE CULTURE; Value: CEFAZOLIN <=4 S; Status: F Test: URINE CULTURE; Value: LEVOFLOXACIN <=0.12 S; Status: F Test: URINE CULTURE; Value: TOBRAMYCIN <=1 S; Status: F Test: URINE CULTURE; Value: CEFTRIAXONE <=1 S; Status: F Test: URINE CULTURE; Value: CEFTAZIDIME <=1 S; Status: F Test: URINE CULTURE; Value: AMPICILLIN/SULBACTAM <=2 S; Status: F Test: URINE CULTURE; Value: PIPERACILLIN/TAZOBACTAM <=4 S; Status: F Test: URINE CULTURE; Value: AZTREONAM <=1 S; Status: F Test: URINE CULTURE; Value: ERTAPENEM <=0.5 S; Status: F Test: URINE CULTURE; Value: MEROPENEM <=0.25 S; Status: F Test: URINE CULTURE; Value: TIGECYCLINE <=0.5 S; Status: F Test: URINE CULTURE; Value: CEFEPIME <=1 S; Status: F Lab Order: UCG- In Lab; SPEC'M 03/21/16 11:56 Test: URINE PREG TEST; Value: NEGATIVE; Range: NEGATIVE; Status: F Lab Order: -Blood Culture; SPEC'M 03/21/16 13:56 Test: BLOOD CULTURE; Value: No growth after 24 hours . All specimens observed; Status: F Test: BLOOD CULTURE; Value: for 5 days. Results final at that time.; Status: F Test: BLOOD CULTURE; Value: No Growth after 48 hours. All Specimens observed; Status: F Test: BLOOD CULTURE; Value: for 7 days. Results final at that time.; Status: F Lab Order: BLOOD CULTURES; SPEC'M 03/21/16 13:56 Test: BLOOD CULTURE; Value: No growth after 24 hours . All specimens observed; Status: F Test: BLOOD CULTURE; Value: for 5 days. Results final at that time.; Status: F Test: BLOOD CULTURE; Value: No Growth after 48 hours. All Specimens observed; Status: F Test: BLOOD CULTURE; Value: for 7 days. Results final at that time.; Status: F Radiology Order: US Renal Test: US Renal REASON FOR EXAMINATION: Renal colic; Clinical: Renal colic.; ; Technique: Real time zambrano scale ultrasound examination using curved array; transducer.; ; Findings:; With the exception of small renal cysts, the kidneys are normal in contour, size,; and echogenicity without perinephric stranding, hydroureteronephrosis or; nephrolithiasis. Right kidney measures 13.4 x 5.1 x 3.8 cm with approximately; three cysts up to 12 mm. Left kidney measures to 0.6 x 4.6 x 5.9 cm with single; 9 mm cyst. Bilateral ureteral jets to the bladder noted. The bladder itself is; unremarkable.; ; Incidental cholelithiasis.; ; Impression:; 1. Essentially normal bilateral kidneys with few scattered cysts.; II. Cholelithiasis.; ; ; Signed by; Jermaine Vickers MD 03/21/2016 01:25 P; Outcome: 14:10 Ultrasound Study completed. kr3 15:25 Discharge ordered by Provider. dk1 15:54 Discharge Assessment: Patient awake, alert and oriented x 3. No cognitive and/or [facility] functional deficits noted. Patient verbalized understanding of disposition instructions. patient administered narcotics - yes. Pt provided with safe discharge. The following High Risk Discharge criteria are identified: None. Discharged to home ambulatory, with parent. with friend. Condition: good Condition: stable Condition: improved. Discharge instructions given to patient, Instructed on discharge instructions, follow up and referral plans. medication usage, Demonstrated understanding of instructions, medications, Pt was receptive of discharge instructions/ teaching. Prescriptions given X 4. Property :Personal belongings accompany Pt. 15:59 Patient left the ED. [facility] Signatures: Dispatcher [employer] EDMS Estee Lamar RN RN Roshan Ware RN RN jmk Scott, Debra, RN RN dls Murphy, Jane, TEST CENTER ADMINISTRATOR TEST CENTER ADMINISTRATOR jam1 Lemuel Mario, Reg Reg lg [place], Charisse sm5 Polly Tony,RN RN kr3 Tyrone Mcgarry, JACK PAOchoa dk1 Himanshu Thompson, TEST CENTER ADMINISTRATOR TEST CENTER ADMINISTRATOR dd6 Carmencita MohrRN RN [facility] Jeannette Girard Corrections: (The following items were deleted from the chart) 11:12 11:10 Home Meds: none; dls dls 13:29 13:27 General: Appears in no apparent distress, comfortable, Behavior is cooperative, [facility] requesting crackers for mother, blankets for self, reports pain in right side after ultrasound 08/27, provider informed. [facility] Chart Complete MTDD
--- NOTE | 2016-03-24 15:25 | EDDOCDS ---
Physician Documentation [facility] Name: Kim Wells Age: 20 yrs Sex: Female : 1995 Arrival Date: 03/21/2016 Time: 10:56 Bed I3 / M3 Private MD: Ashu Barbosa Disposition: 03/21/16 15:25 Discharged to Home/Self Care. Impression: Low back pain - with renal cysts and [place] gallbladder stone, Urinary tract infection, site not specified. - Condition is Stable. - Discharge Instructions: Back Pain, Adult, Urinary Tract Infection, [id number], Back Pain, Adult, [id number]. - Prescriptions for Cipro 500 mg Oral Tablet - take 1 tablet by ORAL route every 12 hours; 14 tablet. Pyridium 200 mg Oral Tablet - take 1 tablet by ORAL route every 8 hours for 3 days; 9 tablet. Tylenol 325 mg Oral Tablet - take 2 tablet by ORAL route every 6 hours as needed; 1 bottle. Baclofen 10 mg Oral Tablet - take 1 tablet by ORAL route 3 times per day; 20 tablet. - Medication Reconciliation, Local Pharmacy Hours form. - Follow up: Ashu Barbosa DO; When: 1 - 2 days; Reason: Continuance of care. Follow up: Hema Cook DO; When: 4 - 5 days; Reason: Continuance of care. Follow up: Emergency Department; When: As needed; Reason: Worsening of conditions. - Problem is new. - Symptoms have improved. Historical: - Allergies: no known allergies; - Home Meds: 1. control patch - Social history: Smoking status: Patient uses tobacco products, light tobacco smoker. No barriers to communication noted, The patient speaks fluent Serbian. - Family history: Not pertinent. - : The pt / caregiver states he / she is not on anticoagulants. Home medication list is obtained from the patient. - Exposure Risk Screening:: None identified. 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 2 in. (157.48 cm) (R); 12:32 Pain 4/10; kr3 13:15 Temp 100.0; jam1 15:54 BP 114 / 62; Pulse 104; Resp 16; Temp 100.2; Pulse Ox 98% ; Pain 5/10; cjh 10:57 Body Mass Index 24.33 (60.33 kg, 157.48 cm) dd6 MDM: 11:39 Financial registration complete. lg 11:43 Ondansetron 4 mg IVP once ordered. dk1 11:43 IV Saline Lock ordered. dk1 11:44 morphine 2 mg IVP once ordered. dk1 11:44 NS 0.9% 1000 ml IV at bolus once ordered. dk1 11:45 Basic Metabolic Profile Ordered. EDMS 11:45 CBC with Diff Ordered. EDMS 11:45 Urinalysis Ordered. EDMS 11:45 UCG- In Lab Ordered. EDMS 11:45 Urine Culture Ordered. EDMS 12:25 Basic Metabolic Profile Reviewed. dk1 12:25 CBC with Diff Reviewed. dk1 12:25 Urinalysis Reviewed. dk1 12:25 UCG- In Lab Reviewed. dk1 12:26 US Renal Ordered. EDMS 13:36 morphine 2 mg IVP once ordered. dk1 13:36 Ciprofloxacin 400 mg IVPB at 200 mL/hr once over 60 mins ordered. dk1 13:36 -Blood Culture (Adults Only), peripheral from different site, or from device/port/PICC dk1 etc. if present ordered. 13:37 -Blood Culture Ordered. EDMS 13:54 [facility] Payment Agreement was scanned into [employer] and attached to record. lg 14:12 BLOOD CULTURES Ordered. EDMS 15:10 -Blood Culture (Adults Only), peripheral from different site, or from device/port/PICC [facility] etc. if present complete. 15:20 US Renal Reviewed. dk1 15:43 Acetaminophen Tablet 650 mg PO once ordered. dk1 03/22 06:10 T-Sheet-- Draft Copy was scanned into [employer] and attached to record. lja Administered Medications: 03/21 12:01 Drug: Ondansetron 4 mg [ondansetron HCl 2 mg/mL intravenous solution (2 mL)] Route: kr3 IVP; Site: left antecubital; 12:32 Follow up: Response: Nausea is decreased kr3 12:01 Drug: morphine 2 mg [morphine 2 mg/mL intravenous cartridge (1 mL)] Route: IVP; Site: kr3 left antecubital; 12:32 Follow up: Pain 06/27 Adult; Response: Pain is decreased [facility] 12:01 Drug: NS 0.9% 1000 ml [sodium chloride 0.9 % intravenous solution] Route: IV; Rate: kr3 bolus; Site: left antecubital; 13:46 Follow up: IV Status: Completed infusion; IV Intake: 1000ml kr3 13:50 Drug: morphine 2 mg Route: IVP; Site: left antecubital; [facility] 14:37 Follow up: Response: Confirmed pt not driving.; No Adverse Reaction; Pain is decreased; [facility] 06/27 14:10 Drug: Ciprofloxacin 400 mg [ciprofloxacin 400 mg/200 mL in 5 % dextrose intravenous kr3 piggyback] Route: IVPB; Rate: 200 mL/hr; Infused Over: 60 mins; Site: left antecubital; 15:52 Drug: Acetaminophen 650 mg [acetaminophen 325 mg tablet (2 tabs)] Route: PO; [facility] 15:57 Follow up: Response: Pt left department before re-evaluation is appropriate [facility] Signatures: Dispatcher [employer] EDMS Roshan Delgadillo RN RN jmk Scott, Debra, RN RN dls Ganter, LoriLee, Reg Reg lg Keyes, David PA-Scooby PA-Scooby [email or web address] Carmencita Mohr RN RN [facility] Shaji, Polly Ramirez RN kr3 The chart was reviewed and I authenticate all verbal orders and agree with the evaluation and treatment provided.Corrections: (The following items were deleted from the chart) 11:12 11:10 Home Meds: none; vincenzo loya Attachments: 13:54 [facility] Payment Agreement lg 03/22 06:10 T-Sheet-- Draft Copy demetrius MTDD
--- NOTE | 2016-03-24 15:25 | EDDOCDS ---
Physician Documentation [facility] Name: Kim Wells Age: 20 yrs Sex: Female : 1995 Arrival Date: 03/21/2016 Time: 10:56 Bed I3 / M3 Private MD: Ashu Barbosa Disposition: 03/21/16 15:25 Discharged to Home/Self Care. Impression: Low back pain - with renal cysts and [place] gallbladder stone, Urinary tract infection, site not specified. - Condition is Stable. - Discharge Instructions: Back Pain, Adult, Urinary Tract Infection, [id number], Back Pain, Adult, [id number]. - Prescriptions for Cipro 500 mg Oral Tablet - take 1 tablet by ORAL route every 12 hours; 14 tablet. Pyridium 200 mg Oral Tablet - take 1 tablet by ORAL route every 8 hours for 3 days; 9 tablet. Tylenol 325 mg Oral Tablet - take 2 tablet by ORAL route every 6 hours as needed; 1 bottle. Baclofen 10 mg Oral Tablet - take 1 tablet by ORAL route 3 times per day; 20 tablet. - Medication Reconciliation, Local Pharmacy Hours form. - Follow up: Ashu Barbosa DO; When: 1 - 2 days; Reason: Continuance of care. Follow up: Hema Cook DO; When: 4 - 5 days; Reason: Continuance of care. Follow up: Emergency Department; When: As needed; Reason: Worsening of conditions. - Problem is new. - Symptoms have improved. Historical: - Allergies: no known allergies; - Home Meds: 1. control patch - Social history: Smoking status: Patient uses tobacco products, light tobacco smoker. No barriers to communication noted, The patient speaks fluent Serbian. - Family history: Not pertinent. - : The pt / caregiver states he / she is not on anticoagulants. Home medication list is obtained from the patient. - Exposure Risk Screening:: None identified. 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 2 in. (157.48 cm) (R); 12:32 Pain 4/10; kr3 13:15 Temp 100.0; jam1 15:54 BP 114 / 62; Pulse 104; Resp 16; Temp 100.2; Pulse Ox 98% ; Pain 5/10; cjh 10:57 Body Mass Index 24.33 (60.33 kg, 157.48 cm) dd6 MDM: 11:39 Financial registration complete. lg 11:43 Ondansetron 4 mg IVP once ordered. dk1 11:43 IV Saline Lock ordered. dk1 11:44 morphine 2 mg IVP once ordered. dk1 11:44 NS 0.9% 1000 ml IV at bolus once ordered. dk1 11:45 Basic Metabolic Profile Ordered. EDMS 11:45 CBC with Diff Ordered. EDMS 11:45 Urinalysis Ordered. EDMS 11:45 UCG- In Lab Ordered. EDMS 11:45 Urine Culture Ordered. EDMS 12:25 Basic Metabolic Profile Reviewed. dk1 12:25 CBC with Diff Reviewed. dk1 12:25 Urinalysis Reviewed. dk1 12:25 UCG- In Lab Reviewed. dk1 12:26 US Renal Ordered. EDMS 13:36 morphine 2 mg IVP once ordered. dk1 13:36 Ciprofloxacin 400 mg IVPB at 200 mL/hr once over 60 mins ordered. dk1 13:36 -Blood Culture (Adults Only), peripheral from different site, or from device/port/PICC dk1 etc. if present ordered. 13:37 -Blood Culture Ordered. EDMS 13:54 [facility] Payment Agreement was scanned into [employer] and attached to record. lg 14:12 BLOOD CULTURES Ordered. EDMS 15:10 -Blood Culture (Adults Only), peripheral from different site, or from device/port/PICC [facility] etc. if present complete. 15:20 US Renal Reviewed. dk1 15:43 Acetaminophen Tablet 650 mg PO once ordered. dk1 03/22 06:10 T-Sheet-- Draft Copy was scanned into [employer] and attached to record. lja Administered Medications: 03/21 12:01 Drug: Ondansetron 4 mg [ondansetron HCl 2 mg/mL intravenous solution (2 mL)] Route: kr3 IVP; Site: left antecubital; 12:32 Follow up: Response: Nausea is decreased kr3 12:01 Drug: morphine 2 mg [morphine 2 mg/mL intravenous cartridge (1 mL)] Route: IVP; Site: kr3 left antecubital; 12:32 Follow up: Pain 06/27 Adult; Response: Pain is decreased [facility] 12:01 Drug: NS 0.9% 1000 ml [sodium chloride 0.9 % intravenous solution] Route: IV; Rate: kr3 bolus; Site: left antecubital; 13:46 Follow up: IV Status: Completed infusion; IV Intake: 1000ml kr3 13:50 Drug: morphine 2 mg Route: IVP; Site: left antecubital; [facility] 14:37 Follow up: Response: Confirmed pt not driving.; No Adverse Reaction; Pain is decreased; [facility] 06/27 14:10 Drug: Ciprofloxacin 400 mg [ciprofloxacin 400 mg/200 mL in 5 % dextrose intravenous kr3 piggyback] Route: IVPB; Rate: 200 mL/hr; Infused Over: 60 mins; Site: left antecubital; 15:52 Drug: Acetaminophen 650 mg [acetaminophen 325 mg tablet (2 tabs)] Route: PO; [facility] 15:57 Follow up: Response: Pt left department before re-evaluation is appropriate [facility] Signatures: Dispatcher [employer] EDMS Roshan Delgadillo RN RN jmk Scott, Debra, RN RN dls Ganter, LoriLee, Reg Reg lg Keyes, David PA-Scooby PA-Scooby [email or web address] Carmencita Mohr RN RN [facility] Shaji, Polly Ramirez RN kr3 The chart was reviewed and I authenticate all verbal orders and agree with the evaluation and treatment provided.Corrections: (The following items were deleted from the chart) 11:12 11:10 Home Meds: none; vincenzo loya Attachments: 13:54 [facility] Payment Agreement lg 03/22 06:10 T-Sheet-- Draft Copy demetrius Chart Complete MTDD
--- NOTE | 2016-03-24 15:25 | EDDOCDS ---
Physician Documentation [facility] Name: Kim Wells Age: 20 yrs Sex: Female : 1995 Arrival Date: 03/21/2016 Time: 10:56 Bed I3 / M3 Private MD: Ashu Barbosa Disposition: 03/21/16 15:25 Discharged to Home/Self Care. Impression: Low back pain - with renal cysts and [place] gallbladder stone, Urinary tract infection, site not specified. - Condition is Stable. - Discharge Instructions: Back Pain, Adult, Urinary Tract Infection, [id number], Back Pain, Adult, [id number]. - Prescriptions for Cipro 500 mg Oral Tablet - take 1 tablet by ORAL route every 12 hours; 14 tablet. Pyridium 200 mg Oral Tablet - take 1 tablet by ORAL route every 8 hours for 3 days; 9 tablet. Tylenol 325 mg Oral Tablet - take 2 tablet by ORAL route every 6 hours as needed; 1 bottle. Baclofen 10 mg Oral Tablet - take 1 tablet by ORAL route 3 times per day; 20 tablet. - Medication Reconciliation, Local Pharmacy Hours form. - Follow up: Ashu Barbosa DO; When: 1 - 2 days; Reason: Continuance of care. Follow up: Hema Cook DO; When: 4 - 5 days; Reason: Continuance of care. Follow up: Emergency Department; When: As needed; Reason: Worsening of conditions. - Problem is new. - Symptoms have improved. Historical: - Allergies: no known allergies; - Home Meds: 1. control patch - Social history: Smoking status: Patient uses tobacco products, light tobacco smoker. No barriers to communication noted, The patient speaks fluent Occitan. - Family history: Not pertinent. - : The pt / caregiver states he / she is not on anticoagulants. Home medication list is obtained from the patient. - Exposure Risk Screening:: None identified. 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 2 in. (157.48 cm) (R); 12:32 Pain 4/10; kr3 13:15 Temp 100.0; jam1 15:54 BP 114 / 62; Pulse 104; Resp 16; Temp 100.2; Pulse Ox 98% ; Pain 5/10; cjh 10:57 Body Mass Index 24.33 (60.33 kg, 157.48 cm) dd6 MDM: 11:39 Financial registration complete. lg 11:43 Ondansetron 4 mg IVP once ordered. dk1 11:43 IV Saline Lock ordered. dk1 11:44 morphine 2 mg IVP once ordered. dk1 11:44 NS 0.9% 1000 ml IV at bolus once ordered. dk1 11:45 Basic Metabolic Profile Ordered. EDMS 11:45 CBC with Diff Ordered. EDMS 11:45 Urinalysis Ordered. EDMS 11:45 UCG- In Lab Ordered. EDMS 11:45 Urine Culture Ordered. EDMS 12:25 Basic Metabolic Profile Reviewed. dk1 12:25 CBC with Diff Reviewed. dk1 12:25 Urinalysis Reviewed. dk1 12:25 UCG- In Lab Reviewed. dk1 12:26 US Renal Ordered. EDMS 13:36 morphine 2 mg IVP once ordered. dk1 13:36 Ciprofloxacin 400 mg IVPB at 200 mL/hr once over 60 mins ordered. dk1 13:36 -Blood Culture (Adults Only), peripheral from different site, or from device/port/PICC dk1 etc. if present ordered. 13:37 -Blood Culture Ordered. EDMS 13:54 [facility] Payment Agreement was scanned into [employer] and attached to record. lg 14:12 BLOOD CULTURES Ordered. EDMS 15:10 -Blood Culture (Adults Only), peripheral from different site, or from device/port/PICC [facility] etc. if present complete. 15:20 US Renal Reviewed. dk1 15:43 Acetaminophen Tablet 650 mg PO once ordered. dk1 03/22 06:10 T-Sheet-- Draft Copy was scanned into [employer] and attached to record. lja Administered Medications: 03/21 12:01 Drug: Ondansetron 4 mg [ondansetron HCl 2 mg/mL intravenous solution (2 mL)] Route: kr3 IVP; Site: left antecubital; 12:32 Follow up: Response: Nausea is decreased kr3 12:01 Drug: morphine 2 mg [morphine 2 mg/mL intravenous cartridge (1 mL)] Route: IVP; Site: kr3 left antecubital; 12:32 Follow up: Pain 06/27 Adult; Response: Pain is decreased [facility] 12:01 Drug: NS 0.9% 1000 ml [sodium chloride 0.9 % intravenous solution] Route: IV; Rate: kr3 bolus; Site: left antecubital; 13:46 Follow up: IV Status: Completed infusion; IV Intake: 1000ml kr3 13:50 Drug: morphine 2 mg Route: IVP; Site: left antecubital; [facility] 14:37 Follow up: Response: Confirmed pt not driving.; No Adverse Reaction; Pain is decreased; [facility] 06/27 14:10 Drug: Ciprofloxacin 400 mg [ciprofloxacin 400 mg/200 mL in 5 % dextrose intravenous kr3 piggyback] Route: IVPB; Rate: 200 mL/hr; Infused Over: 60 mins; Site: left antecubital; 15:52 Drug: Acetaminophen 650 mg [acetaminophen 325 mg tablet (2 tabs)] Route: PO; [facility] 15:57 Follow up: Response: Pt left department before re-evaluation is appropriate [facility] Signatures: Dispatcher [employer] EDMS Roshan Delgadillo RN RN jmk Scott, Debra, RN RN dls Ganter, LoriLee, Reg Reg lg Keyes, David PA-Scooby PA-Scooby [email or web address] Carmencita Mohr RN RN [facility] Shaji, Polly Ramirez RN kr3 The chart was reviewed and I authenticate all verbal orders and agree with the evaluation and treatment provided.Corrections: (The following items were deleted from the chart) 11:12 11:10 Home Meds: none; vincenzo loya Attachments: 13:54 [facility] Payment Agreement lg 03/22 06:10 T-Sheet-- Draft Copy demetrius Chart Complete MTDD
--- NOTE | 2016-03-24 15:25 | EDDOCDS ---
Nurse's Notes [facility] Name: Kim Wells Age: 20 yrs Sex: Female : 1995 Arrival Date: 03/21/2016 Time: 10:56 Bed I3 / M3 Private MD: Ashu Barbosa Diagnosis: Low back pain-with renal cysts and [place] gallbladder stone;Urinary tract infection, site not specified Presentation: 03/21 11:08 Presenting complaint: Patient states: Pt presents with right sided flank pain x one dls week getting worse every day. Denies injury states she has urinary frequency. Acute neurological deficits are not present. Mechanism of Injury: No Mechanism of Injury. Adult Sepsis Screening: The patient does not have new or worsening altered mentation. Patient's respiratory rate is less than 22. Systolic blood pressure is greater than 100. Patient has a qSOFA score of 0- Negative Sepsis Screen. Suicide/Homicide risk assessment- the patient denies having any suicidal and/or homicidal ideations and does not present with any other emotional, behavioral or mental health complaints. Status: Patient is not a career services director or dependent. Transition of care: patient was not received from another setting of care. 11:08 Acuity: MACARIO Level 3 dls 11:08 Method Of Arrival: Walkin/Carried/Asstd dls Triage Assessment: 11:10 General: Appears uncomfortable, well developed, well nourished, Behavior is dls cooperative. Pain: Pain currently is 9 out of 10 on a pain scale. HIV screening NA for this visit Offered previously. CLAY WASHER: 11:10 LMP 02/18/2016 dls Historical: - Allergies: no known allergies; - Home Meds: 1. control patch - Social history: Smoking status: Patient uses tobacco products, light tobacco smoker. No barriers to communication noted, The patient speaks fluent Tajik. - Family history: Not pertinent. - : The pt / caregiver states he / she is not on anticoagulants. Home medication list is obtained from the patient. - Exposure Risk Screening:: None identified. Screenin:06 Screening information is obtained from the patient. Fall risk: No risks identified. jmk Assistance ADL's: requires no assistance with activities of daily living. Abuse/DV Screen: The patient / caregiver reports he/she is: not in a situation that causes fear, pain or injury. Nutritional screening: No deficits noted. Advance Directives: Currently, there is no health care proxy. There is no active DNR order. There is no living will. There is no Power of Pellet Press Operator. Advance directive information has not previously been placed in an [facility] medical record. home support is adequate. Assessment: 12:04 General: Appears Restless with discomfort. writhing about and mother assisting with jmk changed in position. Indicates right flank pain. Without redness , swelling or ecchymosis.. abd soft and non distended with bowel sounds present x 4. Odd affect, Immature presentation. GI: Abdomen is flat, non- distended Bowel sounds present X 4 quads. Abd is soft and non tender X 4 quads. Musculoskeletal: No deficits noted. 12:32 Reassessment: aroused from sleep easily, reports pain 4/10 but still having some nausea.kr3 13:27 General: Appears in no apparent distress, comfortable, Behavior is cooperative, [facility] requesting crackers for mother, blankets for self, blanket and crackers provided, water bottle noted at patient bedside, reviewed NPO, reports pain in right side after ultrasound 6/10, provider informed. 14:10 Reassessment: Patient appears in no apparent distress at this time. talking on phone, kr3 mother remains in room. 14:36 General: assisted with equipement to get oob to BR, gait steady, ambulates without [facility] assist required. 15:07 General: Appears in no apparent distress, comfortable, Behavior is appropriate for age, cjh cooperative, family at bedside, patient states feeling much better, awaiting dispo, gingerale provided per patient request. 15:54 General: reviewed discharge instructions with patient, obtained provider to answer [facility] questions regarding surgical consult, patient denies other needs, declines offer of additional assistance with discharge. Vital Signs: 10:57 BP 114 / 73; Pulse 105; Resp 18 S; Temp 99.3(O); Pulse Ox 99% on R/A; Weight 60.33 kg dd6 (R); Height 5 ft. 2 in. (157.48 cm) (R); 12:32 Pain 4/10; kr3 13:15 Temp 100.0; jam1 15:54 BP 114 / 62; Pulse 104; Resp 16; Temp 100.2; Pulse Ox 98% ; Pain 5/10; cjh 10:57 Body Mass Index 24.33 (60.33 kg, 157.48 cm) dd6 Vitals: 10:57 Log In Time: March 21, 2016 at 10:55. dd6 ED Course: 10:57 Patient visited by Himanshu Thompson PCA. dd6 10:57 Ashu Barbosa DO is Private Physician. dd6 10:57 Patient moved to Waiting dd6 10:58 Patient moved to Pre RCE dd6 11:09 Triage Initiated dls 11:33 Tyrone Mcgarry PA-C is PHCP. dk1 11:33 Nano Pearson MD is Attending Physician. dk1 11:33 Patient moved to Triage 3 kcs 11:34 Patient visited by Tyrone Mcgarry PA-C. dk1 11:46 Patient moved to I3 / M3 kcs 12:06 The patient / caregiver is instructed regarding the plan of care and ED course. jmk 12:06 Inserted saline lock: 20 gauge in left antecubital area. jmk 12:07 Patient visited by Roshan Delgadillo RN. jmk 12:32 Patient visited by Carmencita Castellanos PCA. jam1 12:40 Patient moved to Ultrasound sm5 13:05 Patient moved to I3 / M3 sm5 13:30 Patient visited by Carmencita Mohr RN. [facility] 13:50 US Renal Returned. EDMS 13:51 Patient visited by Carmencita Mohr RN. [facility] 13:54 [facility] Payment Agreement was scanned into [employer] and attached to record. lg 14:13 Patient visited by Carmencita Castellanos PCA. jam1 15:07 Patient visited by Carmencita Mohr RN. [facility] 15:15 PO fluids given. jam1 15:24 Ashu Barbosa DO is Referral Physician. dk1 15:25 Hema Cook DO is Referral Physician. dk1 15:54 Discontinued lock intact, bleeding controlled, pressure dressing applied, No [facility] redness/swelling at site. No procedures done that require assistance. 03/22 06:10 T-Sheet-- Draft Copy was scanned into [employer] and attached to record. lja Administered Medications: 03/21 12:01 Drug: Ondansetron 4 mg [ondansetron HCl 2 mg/mL intravenous solution (2 mL)] Route: kr3 IVP; Site: left antecubital; 12:32 Follow up: Response: Nausea is decreased kr3 12:01 Drug: morphine 2 mg [morphine 2 mg/mL intravenous cartridge (1 mL)] Route: IVP; Site: kr3 left antecubital; 12:32 Follow up: Pain 410 Adult; Response: Pain is decreased kr3 12:01 Drug: NS 0.9% 1000 ml [sodium chloride 0.9 % intravenous solution] Route: IV; Rate: kr3 bolus; Site: left antecubital; 13:46 Follow up: IV Status: Completed infusion; IV Intake: 1000ml kr3 13:50 Drug: morphine 2 mg Route: IVP; Site: left antecubital; [facility] 14:37 Follow up: Response: Confirmed pt not driving.; No Adverse Reaction; Pain is decreased; [facility] 06/27 14:10 Drug: Ciprofloxacin 400 mg [ciprofloxacin 400 mg/200 mL in 5 % dextrose intravenous kr3 piggyback] Route: IVPB; Rate: 200 mL/hr; Infused Over: 60 mins; Site: left antecubital; 15:52 Drug: Acetaminophen 650 mg [acetaminophen 325 mg tablet (2 tabs)] Route: PO; [facility] 15:57 Follow up: Response: Pt left department before re-evaluation is appropriate [facility] Intake: 13:46 IV: 1000.00ml; Total: 1000.00ml. kr3 Order Results: Lab Order: Basic Metabolic Profile; SPEC'M 03/21/16 11:56 Test: GLUCOSE, FASTING; Value: 107; Range: 70-105; Abnormal: Above high normal; Units: MG/DL; Status: F Test: BLOOD UREA NITROGEN; Value: 5; Range: 7-18; Abnormal: Below low normal; Units: MG/DL; Status: F Test: CREATININE FOR GFR; Value: 0.74; Range: 0.55-1.02; Units: MG/DL; Status: F Test: SODIUM LEVEL; Value: 136; Range: 136-145; Units: MEQ/L; Status: F Test: POTASSIUM SERUM; Value: 3.5; Range: 3.5-5.1; Units: MEQ/L; Status: F Test: CHLORIDE LEVEL; Value: 100; Range: 98-107; Units: MEQ/L; Status: F Test: CARBON DIOXIDE LEVEL; Value: 28; Range: 21-32; Units: MEQ/L; Status: F Test: ANION GAP; Value: 8; Range: 8-16; Units: MEQ/L; Status: F Test: CALCIUM LEVEL; Value: 8.3; Range: 8.5-10.1; Abnormal: Below low normal; Units: MG/DL; Status: F Lab Order: CBC with Diff; SPEC'M 03/21/16 11:56 Test: WHITE BLOOD COUNT; Value: 10.3; Range: 4.0-10.0; Abnormal: Above high normal; Units: K/mm3; Status: F Test: RED BLOOD COUNT; Value: 4.36; Range: 4.00-5.40; Units: M/mm3; Status: F Test: HEMOGLOBIN; Value: 12.5; Range: 12.0-16.0; Units: g/dl; Status: F Test: HEMATOCRIT; Value: 37.3; Range: 36.0-47.0; Units: %; Status: F Test: MEAN CORPUSCULAR VOLUME; Value: 85.4; Range: 80.0-96.0; Units: fl; Status: F Test: MEAN CORPUSCULAR HEMOGLOBIN; Value: 28.6; Range: 27.0-33.0; Units: pg; Status: F Test: MEAN CORPUSCULAR HGB CONC; Value: 33.5; Range: 32.0-36.5; Units: g/dl; Status: F Test: RED CELL DISTRIBUTION WIDTH; Value: 13.8; Range: 11.5-14.5; Units: %; Status: F Test: PLATELET COUNT, AUTOMATED; Value: 357; Range: 150-450; Units: k/mm3; Status: F Test: NEUTROPHILS %; Value: 79.5; Range: 36.0-66.0; Abnormal: Above high normal; Units: %; Status: F Test: LYMPH %; Value: 12.9; Range: 24.0-44.0; Abnormal: Below low normal; Units: %; Status: F Test: MONO %; Value: 4.2; Range: 0.0-5.0; Units: %; Status: F Test: EOS %; Value: 1.3; Range: 0.0-3.0; Units: %; Status: F Test: BASO %; Value: 0.2; Range: 0.0-1.0; Units: %; Status: F Test: LARGE UNSTAINED CELL %; Value: 1.9; Range: 0.0-4.0; Units: %; Status: F Test: NEUTROPHILS #; Value: 8.2; Range: 1.8-7.7; Abnormal: Above high normal; Units: K/mm3; Status: F Test: LYMPH #; Value: 1.3; Range: 1.5-6.5; Abnormal: Below low normal; Units: K/mm3; Status: F Test: MONO #; Value: 0.4; Range: 0.0-0.8; Units: K/mm3; Status: F Test: EOS #; Value: 0.1; Range: 0.0-0.50; Units: K/mm3; Status: F Test: BASO #; Value: 0.0; Range: 0.0-0.2; Units: K/mm3; Status: F Test: LARGE UNSTAINED CELL #; Value: 0.2; Range: 0.0-0.4; Units: K/mm3; Status: F Lab Order: Urinalysis; SPEC'M 03/21/16 11:56 Test: APPEARANCE, URINE; Value: CLOUDY; Range: CLEAR; Abnormal: Above high normal; Status: F Test: COLOR, URINE; Value: YELLOW; Range: YELLOW; Status: F Test: PH,URINE; Value: 6.0; Range: 5.0-9.0; Units: UNITS; Status: F Test: SPECIFIC GRAVITY URINE AUTO; Value: 1.013; Range: 1.002-1.035; Status: F Test: PROTEIN, URINE AUTO; Value: 1+; Range: NEGATIVE; Abnormal: Above high normal; Units: mg/dL; Status: F Test: GLUCOSE, URINE (UA) AUTO; Value: NEGATIVE; Range: NEGATIVE; Units: mg/dL; Status: F Test: KETONE, URINE AUTO; Value: NEGATIVE; Range: NEGATIVE; Units: mg/dL; Status: F Test: UROBILINOGEN, URINE AUTO; Value: 0.2; Range: 0.0-2.0; Units: mg/dL; Status: F Test: BILIRUBIN, URINE AUTO; Value: NEGATIVE; Range: NEGATIVE; Status: F Test: NITRITE, URINE AUTO; Value: NEGATIVE; Range: NEGATIVE; Status: F Test: LEUKOCYTE ESTERASE, URINE AUTO; Value: 3+; Range: NEGATIVE; Abnormal: Above high normal; Status: F Test: BLOOD, URINE BLOOD; Value: 1+; Range: NEGATIVE; Abnormal: Above high normal; Status: F Test: SPERM, URINE AUTO; Range: NONE; Status: I Test: WBC, URINE AUTO; Value: TNTC; Range: 0-3; Abnormal: Above high normal; Units: /HPF; Status: F Test: RBC, URINE AUTO; Value: 38; Range: 0-3; Abnormal: Above high normal; Units: /HPF; Status: F Test: BACTERIA, URINE AUTO; Value: 3+; Range: NEGATIVE; Abnormal: Above high normal; Status: F Test: SQUAMOUS EPITHELIAL CELL UR AU; Value: 10; Range: 0-6; Units: /HPF; Status: F Test: MUCUS, URINE; Value: SMALL; Range: NEGATIVE; Status: F Test: HYALINE CAST, URINE AUTO; Value: 0; Range: 0-1; Units: /LPF; Status: F Lab Order: Urine Culture; SPEC'M 03/21/16 11:56 Test: URINE CULTURE; Value: ORGANISM 1: ESCHERICHIA COLI; Status: F Test: URINE CULTURE; Value: ESCHERICHIA COLI; Status: F Test: URINE CULTURE; Value: COLONY COUNT CFU/ml >100,000; Status: F Test: URINE CULTURE; Value: GRAM NEG SENSI - VITEK 80; Status: F Test: URINE CULTURE; Value: Method: VIT2; Status: F Test: URINE CULTURE; Value: EXTD BRD SPCTRM BETA LACTAMASE -; Status: F Test: URINE CULTURE; Value: TRIMETHOPRIM/SULFAMETHOXAZOLE <=20 S; Status: F Test: URINE CULTURE; Value: AMPICILLIN <=2 S; Status: F Test: URINE CULTURE; Value: GENTAMICIN <=1 S; Status: F Test: URINE CULTURE; Value: NITROFURANTOIN <=16 S; Status: F Test: URINE CULTURE; Value: CEFAZOLIN <=4 S; Status: F Test: URINE CULTURE; Value: LEVOFLOXACIN <=0.12 S; Status: F Test: URINE CULTURE; Value: TOBRAMYCIN <=1 S; Status: F Test: URINE CULTURE; Value: CEFTRIAXONE <=1 S; Status: F Test: URINE CULTURE; Value: CEFTAZIDIME <=1 S; Status: F Test: URINE CULTURE; Value: AMPICILLIN/SULBACTAM <=2 S; Status: F Test: URINE CULTURE; Value: PIPERACILLIN/TAZOBACTAM <=4 S; Status: F Test: URINE CULTURE; Value: AZTREONAM <=1 S; Status: F Test: URINE CULTURE; Value: ERTAPENEM <=0.5 S; Status: F Test: URINE CULTURE; Value: MEROPENEM <=0.25 S; Status: F Test: URINE CULTURE; Value: TIGECYCLINE <=0.5 S; Status: F Test: URINE CULTURE; Value: CEFEPIME <=1 S; Status: F Lab Order: UCG- In Lab; SPEC'M 03/21/16 11:56 Test: URINE PREG TEST; Value: NEGATIVE; Range: NEGATIVE; Status: F Lab Order: -Blood Culture; SPEC'M 03/21/16 13:56 Test: BLOOD CULTURE; Value: No growth after 48 hours . All specimens observed; Status: F Test: BLOOD CULTURE; Value: for 5 days. Results final at that time.; Status: F Test: BLOOD CULTURE; Status: F Test: BLOOD CULTURE; Value: No growth after 24 hours . All specimens observed; Status: F Test: BLOOD CULTURE; Value: for 5 days. Results final at that time.; Status: F Test: BLOOD CULTURE; Value: No Growth after 72 hours. All specimens observed; Status: F Test: BLOOD CULTURE; Value: for 7 days. Results final at that time.; Status: F Lab Order: BLOOD CULTURES; SPEC'M 03/21/16 13:56 Test: BLOOD CULTURE; Value: No growth after 48 hours . All specimens observed; Status: F Test: BLOOD CULTURE; Value: for 5 days. Results final at that time.; Status: F Test: BLOOD CULTURE; Status: F Test: BLOOD CULTURE; Value: No growth after 24 hours . All specimens observed; Status: F Test: BLOOD CULTURE; Value: for 5 days. Results final at that time.; Status: F Test: BLOOD CULTURE; Value: No Growth after 72 hours. All specimens observed; Status: F Test: BLOOD CULTURE; Value: for 7 days. Results final at that time.; Status: F Radiology Order: US Renal Test: US Renal REASON FOR EXAMINATION: Renal colic; Clinical: Renal colic.; ; Technique: Real time zambrano scale ultrasound examination using curved array; transducer.; ; Findings:; With the exception of small renal cysts, the kidneys are normal in contour, size,; and echogenicity without perinephric stranding, hydroureteronephrosis or; nephrolithiasis. Right kidney measures 13.4 x 5.1 x 3.8 cm with approximately; three cysts up to 12 mm. Left kidney measures to 0.6 x 4.6 x 5.9 cm with single; 9 mm cyst. Bilateral ureteral jets to the bladder noted. The bladder itself is; unremarkable.; ; Incidental cholelithiasis.; ; Impression:; 1. Essentially normal bilateral kidneys with few scattered cysts.; II. Cholelithiasis.; ; ; Signed by; Jermaine Vickers MD 03/21/2016 01:25 P; Outcome: 14:10 Ultrasound Study completed. kr3 15:25 Discharge ordered by Provider. dk1 15:54 Discharge Assessment: Patient awake, alert and oriented x 3. No cognitive and/or [facility] functional deficits noted. Patient verbalized understanding of disposition instructions. patient administered narcotics - yes. Pt provided with safe discharge. The following High Risk Discharge criteria are identified: None. Discharged to home ambulatory, with parent. with friend. Condition: good Condition: stable Condition: improved. Discharge instructions given to patient, Instructed on discharge instructions, follow up and referral plans. medication usage, Demonstrated understanding of instructions, medications, Pt was receptive of discharge instructions/ teaching. Prescriptions given X 4. Property :Personal belongings accompany Pt. 15:59 Patient left the ED. [facility] Addendum: 03/24/2016 15:22 Narrative: Urine culture results reviewed by ATIF Wilburn and no changes made. [facility] Signatures: Dispatcher [employer] Estee Winn RN RN kcs Knapp, Jean, RN RN jmk Peters, Mary, RN RN mcp Scott, Debra, RN RN dls Murphy, Jane, COMMUNITY ASSOCIATION MANAGER COMMUNITY ASSOCIATION MANAGER jam1 Lemuel Mario, Reg Reg lg [place], Charisse sm5 Polly Tony RN RN kr3 Tyrone Mcgarry, PA-C PA-C dk1 Himanshu Thompson, COMMUNITY ASSOCIATION MANAGER COMMUNITY ASSOCIATION MANAGER dd6 Carmencita Mohr,RN RN [facility] Arel, Jeannette romo Corrections: (The following items were deleted from the chart) 03/21 11:12 11:10 Home Meds: none; dls dls 13:29 13:27 General: Appears in no apparent distress, comfortable, Behavior is cooperative, [facility] requesting crackers for mother, blankets for self, reports pain in right side after ultrasound 08/27, provider informed. [facility] MTDD
--- NOTE | 2016-03-24 15:25 | EDDOCDS ---
Physician Documentation [facility] Name: Kim Wells Age: 20 yrs Sex: Female : 1995 Arrival Date: 03/21/2016 Time: 10:56 Bed I3 / M3 Private MD: Ashu Barbosa Disposition: 03/21/16 15:25 Discharged to Home/Self Care. Impression: Low back pain - with renal cysts and [place] gallbladder stone, Urinary tract infection, site not specified. - Condition is Stable. - Discharge Instructions: Back Pain, Adult, Urinary Tract Infection, [id number], Back Pain, Adult, [id number]. - Prescriptions for Cipro 500 mg Oral Tablet - take 1 tablet by ORAL route every 12 hours; 14 tablet. Pyridium 200 mg Oral Tablet - take 1 tablet by ORAL route every 8 hours for 3 days; 9 tablet. Tylenol 325 mg Oral Tablet - take 2 tablet by ORAL route every 6 hours as needed; 1 bottle. Baclofen 10 mg Oral Tablet - take 1 tablet by ORAL route 3 times per day; 20 tablet. - Medication Reconciliation, Local Pharmacy Hours form. - Follow up: Ashu Barbosa DO; When: 1 - 2 days; Reason: Continuance of care. Follow up: Hema Cook DO; When: 4 - 5 days; Reason: Continuance of care. Follow up: Emergency Department; When: As needed; Reason: Worsening of conditions. - Problem is new. - Symptoms have improved. Historical: - Allergies: no known allergies; - Home Meds: 1. control patch - Social history: Smoking status: Patient uses tobacco products, light tobacco smoker. No barriers to communication noted, The patient speaks fluent Kinyarwanda. - Family history: Not pertinent. - : The pt / caregiver states he / she is not on anticoagulants. Home medication list is obtained from the patient. - Exposure Risk Screening:: None identified. DIRECTOR OF AUTOMATION: 03/21 11:10 LMP 02/18/2016 dls Vital Signs: 10:57 BP 114 / 73; Pulse 105; Resp 18 S; Temp 99.3(O); Pulse Ox 99% on R/A; Weight 60.33 kg / dd6 133 lbs (R); Height 5 ft. 2 in. (157.48 cm) (R); 12:32 Pain 4/10; kr3 13:15 Temp 100.0; jam1 15:54 BP 114 / 62; Pulse 104; Resp 16; Temp 100.2; Pulse Ox 98% ; Pain 5/10; cjh 10:57 Body Mass Index 24.33 (60.33 kg, 157.48 cm) dd6 MDM: 11:39 Financial registration complete. lg 11:43 Ondansetron 4 mg IVP once ordered. dk1 11:43 IV Saline Lock ordered. dk1 11:44 morphine 2 mg IVP once ordered. dk1 11:44 NS 0.9% 1000 ml IV at bolus once ordered. dk1 11:45 Basic Metabolic Profile Ordered. EDMS 11:45 CBC with Diff Ordered. EDMS 11:45 Urinalysis Ordered. EDMS 11:45 UCG- In Lab Ordered. EDMS 11:45 Urine Culture Ordered. EDMS 12:25 Basic Metabolic Profile Reviewed. dk1 12:25 CBC with Diff Reviewed. dk1 12:25 Urinalysis Reviewed. dk1 12:25 UCG- In Lab Reviewed. dk1 12:26 US Renal Ordered. EDMS 13:36 morphine 2 mg IVP once ordered. dk1 13:36 Ciprofloxacin 400 mg IVPB at 200 mL/hr once over 60 mins ordered. dk1 13:36 -Blood Culture (Adults Only), peripheral from different site, or from device/port/PICC dk1 etc. if present ordered. 13:37 -Blood Culture Ordered. EDMS 13:54 [facility] Payment Agreement was scanned into [employer] and attached to record. lg 14:12 BLOOD CULTURES Ordered. EDMS 15:10 -Blood Culture (Adults Only), peripheral from different site, or from device/port/PICC [facility] etc. if present complete. 15:20 US Renal Reviewed. dk1 15:43 Acetaminophen Tablet 650 mg PO once ordered. dk1 03/22 06:10 T-Sheet-- Draft Copy was scanned into [employer] and attached to record. lja Administered Medications: 03/21 12:01 Drug: Ondansetron 4 mg [ondansetron HCl 2 mg/mL intravenous solution (2 mL)] Route: kr3 IVP; Site: left antecubital; 12:32 Follow up: Response: Nausea is decreased kr3 12:01 Drug: morphine 2 mg [morphine 2 mg/mL intravenous cartridge (1 mL)] Route: IVP; Site: kr3 left antecubital; 12:32 Follow up: Pain 06/27 Adult; Response: Pain is decreased [facility] 12:01 Drug: NS 0.9% 1000 ml [sodium chloride 0.9 % intravenous solution] Route: IV; Rate: kr3 bolus; Site: left antecubital; 13:46 Follow up: IV Status: Completed infusion; IV Intake: 1000ml kr3 13:50 Drug: morphine 2 mg Route: IVP; Site: left antecubital; [facility] 14:37 Follow up: Response: Confirmed pt not driving.; No Adverse Reaction; Pain is decreased; [facility] 06/27 14:10 Drug: Ciprofloxacin 400 mg [ciprofloxacin 400 mg/200 mL in 5 % dextrose intravenous kr3 piggyback] Route: IVPB; Rate: 200 mL/hr; Infused Over: 60 mins; Site: left antecubital; 15:52 Drug: Acetaminophen 650 mg [acetaminophen 325 mg tablet (2 tabs)] Route: PO; [facility] 15:57 Follow up: Response: Pt left department before re-evaluation is appropriate [facility] Signatures: Dispatcher [employer] EDMS Roshan Delgadillo RN RN jmk Scott, Debra, RN RN dls Ganter, LoriLee, Reg Reg lg Keyes, David PA-Scooby PA-Scooby [email or web address] Carmencita Mohr RN RN [facility] Shaji, Polly Ramirez RN kr3 The chart was reviewed and I authenticate all verbal orders and agree with the evaluation and treatment provided.Corrections: (The following items were deleted from the chart) 11:12 11:10 Home Meds: none; vincenzo loya Attachments: 13:54 [facility] Payment Agreement lg 03/22 06:10 T-Sheet-- Draft Copy demetrius MTDD
--- NOTE | 2016-03-24 15:26 | EDDOCDS ---
Nurse's Notes [facility] Name: Kim Wells Age: 20 yrs Sex: Female : 1995 Arrival Date: 03/21/2016 Time: 10:56 Bed I3 / M3 Private MD: Ashu Barbosa Diagnosis: Low back pain-with renal cysts and Mobile gallbladder stone;Urinary tract infection, site not specified Presentation: 03/21 11:08 Presenting complaint: Patient states: Pt presents with right sided flank pain x one dls week getting worse every day. Denies injury states she has urinary frequency. Acute neurological deficits are not present. Mechanism of Injury: No Mechanism of Injury. Adult Sepsis Screening: The patient does not have new or worsening altered mentation. Patient's respiratory rate is less than 22. Systolic blood pressure is greater than 100. Patient has a qSOFA score of 0- Negative Sepsis Screen. Suicide/Homicide risk assessment- the patient denies having any suicidal and/or homicidal ideations and does not present with any other emotional, behavioral or mental health complaints. Status: Patient is not a extension service advisor or dependent. Transition of care: patient was not received from another setting of care. 11:08 Acuity: MACARIO Level 3 dls 11:08 Method Of Arrival: Walkin/Carried/Asstd dls Triage Assessment: 11:10 General: Appears uncomfortable, well developed, well nourished, Behavior is dls cooperative. Pain: Pain currently is 9 out of 10 on a pain scale. HIV screening NA for this visit Offered previously. 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 control patch - Social history: Smoking status: Patient uses tobacco products, light tobacco smoker. No barriers to communication noted, The patient speaks fluent Yemeni. - Family history: Not pertinent. - : The pt / caregiver states he / she is not on anticoagulants. Home medication list is obtained from the patient. - Exposure Risk Screening:: None identified. Screenin:06 Screening information is obtained from the patient. Fall risk: No risks identified. jmk Assistance ADL's: requires no assistance with activities of daily living. Abuse/DV Screen: The patient / caregiver reports he/she is: not in a situation that causes fear, pain or injury. Nutritional screening: No deficits noted. Advance Directives: Currently, there is no health care proxy. There is no active DNR order. There is no living will. There is no Power of Net Washer. Advance directive information has not previously been placed in an [facility] medical record. home support is adequate. Assessment: 12:04 General: Appears Restless with discomfort. writhing about and mother assisting with jmk changed in position. Indicates right flank pain. Without redness , swelling or ecchymosis.. abd soft and non distended with bowel sounds present x 4. Odd affect, Immature presentation. GI: Abdomen is flat, non- distended Bowel sounds present X 4 quads. Abd is soft and non tender X 4 quads. Musculoskeletal: No deficits noted. 12:32 Reassessment: aroused from sleep easily, reports pain 4/10 but still having some nausea.kr3 13:27 General: Appears in no apparent distress, comfortable, Behavior is cooperative, [facility] requesting crackers for mother, blankets for self, blanket and crackers provided, water bottle noted at patient bedside, reviewed NPO, reports pain in right side after ultrasound 6/10, provider informed. 14:10 Reassessment: Patient appears in no apparent distress at this time. talking on phone, kr3 mother remains in room. 14:36 General: assisted with equipement to get oob to BR, gait steady, ambulates without [facility] assist required. 15:07 General: Appears in no apparent distress, comfortable, Behavior is appropriate for age, cjh cooperative, family at bedside, patient states feeling much better, awaiting dispo, gingerale provided per patient request. 15:54 General: reviewed discharge instructions with patient, obtained provider to answer [facility] questions regarding surgical consult, patient denies other needs, declines offer of additional assistance with discharge. Vital Signs: 10:57 BP 114 / 73; Pulse 105; Resp 18 S; Temp 99.3(O); Pulse Ox 99% on R/A; Weight 60.33 kg dd6 (R); Height 5 ft. 2 in. (157.48 cm) (R); 12:32 Pain 4/10; kr3 13:15 Temp 100.0; jam1 15:54 BP 114 / 62; Pulse 104; Resp 16; Temp 100.2; Pulse Ox 98% ; Pain 5/10; cjh 10:57 Body Mass Index 24.33 (60.33 kg, 157.48 cm) dd6 Vitals: 10:57 Log In Time: March 21, 2016 at 10:55. dd6 ED Course: 10:57 Patient visited by Himanshu Thompson PCA. dd6 10:57 Ashu Barbosa DO is Private Physician. dd6 10:57 Patient moved to Waiting dd6 10:58 Patient moved to Pre RCE dd6 11:09 Triage Initiated dls 11:33 Tyrone Mcgarry PA-C is PHCP. dk1 11:33 Nano Pearson MD is Attending Physician. dk1 11:33 Patient moved to Triage 3 kcs 11:34 Patient visited by Tyrone Mcgarry PA-C. dk1 11:46 Patient moved to I3 / M3 kcs 12:06 The patient / caregiver is instructed regarding the plan of care and ED course. jmk 12:06 Inserted saline lock: 20 gauge in left antecubital area. jmk 12:07 Patient visited by Roshan Delgadillo RN. jmk 12:32 Patient visited by Carmencita Castellanos PCA. jam1 12:40 Patient moved to Ultrasound sm5 13:05 Patient moved to I3 / M3 sm5 13:30 Patient visited by Carmencita Mohr RN. [facility] 13:50 US Renal Returned. EDMS 13:51 Patient visited by Carmencita Mohr RN. [facility] 13:54 [facility] Payment Agreement was scanned into [employer] and attached to record. lg 14:13 Patient visited by Carmencita Castellanos PCA. jam1 15:07 Patient visited by Carmencita Mohr RN. [facility] 15:15 PO fluids given. jam1 15:24 Ashu Barbosa DO is Referral Physician. dk1 15:25 Hema Cook DO is Referral Physician. dk1 15:54 Discontinued lock intact, bleeding controlled, pressure dressing applied, No [facility] redness/swelling at site. No procedures done that require assistance. 03/22 06:10 T-Sheet-- Draft Copy was scanned into [employer] and attached to record. lja Administered Medications: 03/21 12:01 Drug: Ondansetron 4 mg [ondansetron HCl 2 mg/mL intravenous solution (2 mL)] Route: kr3 IVP; Site: left antecubital; 12:32 Follow up: Response: Nausea is decreased kr3 12:01 Drug: morphine 2 mg [morphine 2 mg/mL intravenous cartridge (1 mL)] Route: IVP; Site: kr3 left antecubital; 12:32 Follow up: Pain 410 Adult; Response: Pain is decreased kr3 12:01 Drug: NS 0.9% 1000 ml [sodium chloride 0.9 % intravenous solution] Route: IV; Rate: kr3 bolus; Site: left antecubital; 13:46 Follow up: IV Status: Completed infusion; IV Intake: 1000ml kr3 13:50 Drug: morphine 2 mg Route: IVP; Site: left antecubital; [facility] 14:37 Follow up: Response: Confirmed pt not driving.; No Adverse Reaction; Pain is decreased; [facility] 06/27 14:10 Drug: Ciprofloxacin 400 mg [ciprofloxacin 400 mg/200 mL in 5 % dextrose intravenous kr3 piggyback] Route: IVPB; Rate: 200 mL/hr; Infused Over: 60 mins; Site: left antecubital; 15:52 Drug: Acetaminophen 650 mg [acetaminophen 325 mg tablet (2 tabs)] Route: PO; [facility] 15:57 Follow up: Response: Pt left department before re-evaluation is appropriate [facility] Intake: 13:46 IV: 1000.00ml; Total: 1000.00ml. kr3 Order Results: Lab Order: Basic Metabolic Profile; SPEC'M 03/21/16 11:56 Test: GLUCOSE, FASTING; Value: 107; Range: 70-105; Abnormal: Above high normal; Units: MG/DL; Status: F Test: BLOOD UREA NITROGEN; Value: 5; Range: 7-18; Abnormal: Below low normal; Units: MG/DL; Status: F Test: CREATININE FOR GFR; Value: 0.74; Range: 0.55-1.02; Units: MG/DL; Status: F Test: SODIUM LEVEL; Value: 136; Range: 136-145; Units: MEQ/L; Status: F Test: POTASSIUM SERUM; Value: 3.5; Range: 3.5-5.1; Units: MEQ/L; Status: F Test: CHLORIDE LEVEL; Value: 100; Range: 98-107; Units: MEQ/L; Status: F Test: CARBON DIOXIDE LEVEL; Value: 28; Range: 21-32; Units: MEQ/L; Status: F Test: ANION GAP; Value: 8; Range: 8-16; Units: MEQ/L; Status: F Test: CALCIUM LEVEL; Value: 8.3; Range: 8.5-10.1; Abnormal: Below low normal; Units: MG/DL; Status: F Lab Order: CBC with Diff; SPEC'M 03/21/16 11:56 Test: WHITE BLOOD COUNT; Value: 10.3; Range: 4.0-10.0; Abnormal: Above high normal; Units: K/mm3; Status: F Test: RED BLOOD COUNT; Value: 4.36; Range: 4.00-5.40; Units: M/mm3; Status: F Test: HEMOGLOBIN; Value: 12.5; Range: 12.0-16.0; Units: g/dl; Status: F Test: HEMATOCRIT; Value: 37.3; Range: 36.0-47.0; Units: %; Status: F Test: MEAN CORPUSCULAR VOLUME; Value: 85.4; Range: 80.0-96.0; Units: fl; Status: F Test: MEAN CORPUSCULAR HEMOGLOBIN; Value: 28.6; Range: 27.0-33.0; Units: pg; Status: F Test: MEAN CORPUSCULAR HGB CONC; Value: 33.5; Range: 32.0-36.5; Units: g/dl; Status: F Test: RED CELL DISTRIBUTION WIDTH; Value: 13.8; Range: 11.5-14.5; Units: %; Status: F Test: PLATELET COUNT, AUTOMATED; Value: 357; Range: 150-450; Units: k/mm3; Status: F Test: NEUTROPHILS %; Value: 79.5; Range: 36.0-66.0; Abnormal: Above high normal; Units: %; Status: F Test: LYMPH %; Value: 12.9; Range: 24.0-44.0; Abnormal: Below low normal; Units: %; Status: F Test: MONO %; Value: 4.2; Range: 0.0-5.0; Units: %; Status: F Test: EOS %; Value: 1.3; Range: 0.0-3.0; Units: %; Status: F Test: BASO %; Value: 0.2; Range: 0.0-1.0; Units: %; Status: F Test: LARGE UNSTAINED CELL %; Value: 1.9; Range: 0.0-4.0; Units: %; Status: F Test: NEUTROPHILS #; Value: 8.2; Range: 1.8-7.7; Abnormal: Above high normal; Units: K/mm3; Status: F Test: LYMPH #; Value: 1.3; Range: 1.5-6.5; Abnormal: Below low normal; Units: K/mm3; Status: F Test: MONO #; Value: 0.4; Range: 0.0-0.8; Units: K/mm3; Status: F Test: EOS #; Value: 0.1; Range: 0.0-0.50; Units: K/mm3; Status: F Test: BASO #; Value: 0.0; Range: 0.0-0.2; Units: K/mm3; Status: F Test: LARGE UNSTAINED CELL #; Value: 0.2; Range: 0.0-0.4; Units: K/mm3; Status: F Lab Order: Urinalysis; SPEC'M 03/21/16 11:56 Test: APPEARANCE, URINE; Value: CLOUDY; Range: CLEAR; Abnormal: Above high normal; Status: F Test: COLOR, URINE; Value: YELLOW; Range: YELLOW; Status: F Test: PH,URINE; Value: 6.0; Range: 5.0-9.0; Units: UNITS; Status: F Test: SPECIFIC GRAVITY URINE AUTO; Value: 1.013; Range: 1.002-1.035; Status: F Test: PROTEIN, URINE AUTO; Value: 1+; Range: NEGATIVE; Abnormal: Above high normal; Units: mg/dL; Status: F Test: GLUCOSE, URINE (UA) AUTO; Value: NEGATIVE; Range: NEGATIVE; Units: mg/dL; Status: F Test: KETONE, URINE AUTO; Value: NEGATIVE; Range: NEGATIVE; Units: mg/dL; Status: F Test: UROBILINOGEN, URINE AUTO; Value: 0.2; Range: 0.0-2.0; Units: mg/dL; Status: F Test: BILIRUBIN, URINE AUTO; Value: NEGATIVE; Range: NEGATIVE; Status: F Test: NITRITE, URINE AUTO; Value: NEGATIVE; Range: NEGATIVE; Status: F Test: LEUKOCYTE ESTERASE, URINE AUTO; Value: 3+; Range: NEGATIVE; Abnormal: Above high normal; Status: F Test: BLOOD, URINE BLOOD; Value: 1+; Range: NEGATIVE; Abnormal: Above high normal; Status: F Test: SPERM, URINE AUTO; Range: NONE; Status: I Test: WBC, URINE AUTO; Value: TNTC; Range: 0-3; Abnormal: Above high normal; Units: /HPF; Status: F Test: RBC, URINE AUTO; Value: 38; Range: 0-3; Abnormal: Above high normal; Units: /HPF; Status: F Test: BACTERIA, URINE AUTO; Value: 3+; Range: NEGATIVE; Abnormal: Above high normal; Status: F Test: SQUAMOUS EPITHELIAL CELL UR AU; Value: 10; Range: 0-6; Units: /HPF; Status: F Test: MUCUS, URINE; Value: SMALL; Range: NEGATIVE; Status: F Test: HYALINE CAST, URINE AUTO; Value: 0; Range: 0-1; Units: /LPF; Status: F Lab Order: Urine Culture; SPEC'M 03/21/16 11:56 Test: URINE CULTURE; Value: ORGANISM 1: ESCHERICHIA COLI; Status: F Test: URINE CULTURE; Value: ESCHERICHIA COLI; Status: F Test: URINE CULTURE; Value: COLONY COUNT CFU/ml >100,000; Status: F Test: URINE CULTURE; Value: GRAM NEG SENSI - VITEK 80; Status: F Test: URINE CULTURE; Value: Method: VIT2; Status: F Test: URINE CULTURE; Value: EXTD BRD SPCTRM BETA LACTAMASE -; Status: F Test: URINE CULTURE; Value: TRIMETHOPRIM/SULFAMETHOXAZOLE <=20 S; Status: F Test: URINE CULTURE; Value: AMPICILLIN <=2 S; Status: F Test: URINE CULTURE; Value: GENTAMICIN <=1 S; Status: F Test: URINE CULTURE; Value: NITROFURANTOIN <=16 S; Status: F Test: URINE CULTURE; Value: CEFAZOLIN <=4 S; Status: F Test: URINE CULTURE; Value: LEVOFLOXACIN <=0.12 S; Status: F Test: URINE CULTURE; Value: TOBRAMYCIN <=1 S; Status: F Test: URINE CULTURE; Value: CEFTRIAXONE <=1 S; Status: F Test: URINE CULTURE; Value: CEFTAZIDIME <=1 S; Status: F Test: URINE CULTURE; Value: AMPICILLIN/SULBACTAM <=2 S; Status: F Test: URINE CULTURE; Value: PIPERACILLIN/TAZOBACTAM <=4 S; Status: F Test: URINE CULTURE; Value: AZTREONAM <=1 S; Status: F Test: URINE CULTURE; Value: ERTAPENEM <=0.5 S; Status: F Test: URINE CULTURE; Value: MEROPENEM <=0.25 S; Status: F Test: URINE CULTURE; Value: TIGECYCLINE <=0.5 S; Status: F Test: URINE CULTURE; Value: CEFEPIME <=1 S; Status: F Lab Order: UCG- In Lab; SPEC'M 03/21/16 11:56 Test: URINE PREG TEST; Value: NEGATIVE; Range: NEGATIVE; Status: F Lab Order: -Blood Culture; SPEC'M 03/21/16 13:56 Test: BLOOD CULTURE; Value: No growth after 48 hours . All specimens observed; Status: F Test: BLOOD CULTURE; Value: for 5 days. Results final at that time.; Status: F Test: BLOOD CULTURE; Status: F Test: BLOOD CULTURE; Value: No growth after 24 hours . All specimens observed; Status: F Test: BLOOD CULTURE; Value: for 5 days. Results final at that time.; Status: F Test: BLOOD CULTURE; Value: No Growth after 72 hours. All specimens observed; Status: F Test: BLOOD CULTURE; Value: for 7 days. Results final at that time.; Status: F Lab Order: BLOOD CULTURES; SPEC'M 03/21/16 13:56 Test: BLOOD CULTURE; Value: No growth after 48 hours . All specimens observed; Status: F Test: BLOOD CULTURE; Value: for 5 days. Results final at that time.; Status: F Test: BLOOD CULTURE; Status: F Test: BLOOD CULTURE; Value: No growth after 24 hours . All specimens observed; Status: F Test: BLOOD CULTURE; Value: for 5 days. Results final at that time.; Status: F Test: BLOOD CULTURE; Value: No Growth after 72 hours. All specimens observed; Status: F Test: BLOOD CULTURE; Value: for 7 days. Results final at that time.; Status: F Radiology Order: US Renal Test: US Renal REASON FOR EXAMINATION: Renal colic; Clinical: Renal colic.; ; Technique: Real time zambrano scale ultrasound examination using curved array; transducer.; ; Findings:; With the exception of small renal cysts, the kidneys are normal in contour, size,; and echogenicity without perinephric stranding, hydroureteronephrosis or; nephrolithiasis. Right kidney measures 13.4 x 5.1 x 3.8 cm with approximately; three cysts up to 12 mm. Left kidney measures to 0.6 x 4.6 x 5.9 cm with single; 9 mm cyst. Bilateral ureteral jets to the bladder noted. The bladder itself is; unremarkable.; ; Incidental cholelithiasis.; ; Impression:; 1. Essentially normal bilateral kidneys with few scattered cysts.; II. Cholelithiasis.; ; ; Signed by; Jermaine Vickers MD 03/21/2016 01:25 P; Outcome: 14:10 Ultrasound Study completed. kr3 15:25 Discharge ordered by Provider. dk1 15:54 Discharge Assessment: Patient awake, alert and oriented x 3. No cognitive and/or [facility] functional deficits noted. Patient verbalized understanding of disposition instructions. patient administered narcotics - yes. Pt provided with safe discharge. The following High Risk Discharge criteria are identified: None. Discharged to home ambulatory, with parent. with friend. Condition: good Condition: stable Condition: improved. Discharge instructions given to patient, Instructed on discharge instructions, follow up and referral plans. medication usage, Demonstrated understanding of instructions, medications, Pt was receptive of discharge instructions/ teaching. Prescriptions given X 4. Property :Personal belongings accompany Pt. 15:59 Patient left the ED. [facility] Addendum: 03/24/2016 15:22 Narrative: Urine culture results reviewed by ATIF Wilburn and no changes made. [facility] Signatures: Dispatcher [employer] Estee Winn RN RN kcs Knapp, Jean, RN RN jmk Peters, Mary, RN RN mcp Scott, Debra, RN RN dls Murphy, Jane, GARMENT TAG STRINGER GARMENT TAG STRINGER jam1 Lemuel Mario, Reg Reg lg [place], Charisse sm5 Polly Tony RN RN kr3 Tyrone Mcgarry, PA-C PA-C dk1 Himanshu Thompson, GARMENT TAG STRINGER GARMENT TAG STRINGER dd6 Carmencita Mohr,RN RN [facility] Arel, Jeannette romo Corrections: (The following items were deleted from the chart) 03/21 11:12 11:10 Home Meds: none; dls dls 13:29 13:27 General: Appears in no apparent distress, comfortable, Behavior is cooperative, [facility] requesting crackers for mother, blankets for self, reports pain in right side after ultrasound 08/27, provider informed. [facility] Chart Complete MTDD
--- NOTE | 2016-03-24 17:17 | EDDOCDS ---
Physician Documentation [facility] Name: Kim Wells Age: 20 yrs Sex: Female : 1995 Arrival Date: 03/21/2016 Time: 10:56 Bed I3 / M3 Private MD: Ashu Barbosa Disposition: 03/21/16 15:25 Discharged to Home/Self Care. Impression: Low back pain - with renal cysts and [place] gallbladder stone, Urinary tract infection, site not specified. - Condition is Stable. - Discharge Instructions: Back Pain, Adult, Urinary Tract Infection, [id number], Back Pain, Adult, [id number]. - Prescriptions for Cipro 500 mg Oral Tablet - take 1 tablet by ORAL route every 12 hours; 14 tablet. Pyridium 200 mg Oral Tablet - take 1 tablet by ORAL route every 8 hours for 3 days; 9 tablet. Tylenol 325 mg Oral Tablet - take 2 tablet by ORAL route every 6 hours as needed; 1 bottle. Baclofen 10 mg Oral Tablet - take 1 tablet by ORAL route 3 times per day; 20 tablet. - Medication Reconciliation, Local Pharmacy Hours form. - Follow up: Ashu Barbosa DO; When: 1 - 2 days; Reason: Continuance of care. Follow up: Hema Cook DO; When: 4 - 5 days; Reason: Continuance of care. Follow up: Emergency Department; When: As needed; Reason: Worsening of conditions. - Problem is new. - Symptoms have improved. Historical: - Allergies: no known allergies; - Home Meds: 1. control patch - Social history: Smoking status: Patient uses tobacco products, light tobacco smoker. No barriers to communication noted, The patient speaks fluent Sami. - Family history: Not pertinent. - : The pt / caregiver states he / she is not on anticoagulants. Home medication list is obtained from the patient. - Exposure Risk Screening:: None identified. 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 2 in. (157.48 cm) (R); 12:32 Pain 4/10; kr3 13:15 Temp 100.0; jam1 15:54 BP 114 / 62; Pulse 104; Resp 16; Temp 100.2; Pulse Ox 98% ; Pain 5/10; cjh 10:57 Body Mass Index 24.33 (60.33 kg, 157.48 cm) dd6 MDM: 11:39 Financial registration complete. lg 11:43 Ondansetron 4 mg IVP once ordered. dk1 11:43 IV Saline Lock ordered. dk1 11:44 morphine 2 mg IVP once ordered. dk1 11:44 NS 0.9% 1000 ml IV at bolus once ordered. dk1 11:45 Basic Metabolic Profile Ordered. EDMS 11:45 CBC with Diff Ordered. EDMS 11:45 Urinalysis Ordered. EDMS 11:45 UCG- In Lab Ordered. EDMS 11:45 Urine Culture Ordered. EDMS 12:25 Basic Metabolic Profile Reviewed. dk1 12:25 CBC with Diff Reviewed. dk1 12:25 Urinalysis Reviewed. dk1 12:25 UCG- In Lab Reviewed. dk1 12:26 US Renal Ordered. EDMS 13:36 morphine 2 mg IVP once ordered. dk1 13:36 Ciprofloxacin 400 mg IVPB at 200 mL/hr once over 60 mins ordered. dk1 13:36 -Blood Culture (Adults Only), peripheral from different site, or from device/port/PICC dk1 etc. if present ordered. 13:37 -Blood Culture Ordered. EDMS 13:54 [facility] Payment Agreement was scanned into [employer] and attached to record. lg 14:12 BLOOD CULTURES Ordered. EDMS 15:10 -Blood Culture (Adults Only), peripheral from different site, or from device/port/PICC [facility] etc. if present complete. 15:20 US Renal Reviewed. dk1 15:43 Acetaminophen Tablet 650 mg PO once ordered. dk1 03/22 06:10 T-Sheet-- Draft Copy was scanned into [employer] and attached to record. lja Administered Medications: 03/21 12:01 Drug: Ondansetron 4 mg [ondansetron HCl 2 mg/mL intravenous solution (2 mL)] Route: kr3 IVP; Site: left antecubital; 12:32 Follow up: Response: Nausea is decreased kr3 12:01 Drug: morphine 2 mg [morphine 2 mg/mL intravenous cartridge (1 mL)] Route: IVP; Site: kr3 left antecubital; 12:32 Follow up: Pain 06/27 Adult; Response: Pain is decreased [facility] 12:01 Drug: NS 0.9% 1000 ml [sodium chloride 0.9 % intravenous solution] Route: IV; Rate: kr3 bolus; Site: left antecubital; 13:46 Follow up: IV Status: Completed infusion; IV Intake: 1000ml kr3 13:50 Drug: morphine 2 mg Route: IVP; Site: left antecubital; [facility] 14:37 Follow up: Response: Confirmed pt not driving.; No Adverse Reaction; Pain is decreased; [facility] 06/27 14:10 Drug: Ciprofloxacin 400 mg [ciprofloxacin 400 mg/200 mL in 5 % dextrose intravenous kr3 piggyback] Route: IVPB; Rate: 200 mL/hr; Infused Over: 60 mins; Site: left antecubital; 15:52 Drug: Acetaminophen 650 mg [acetaminophen 325 mg tablet (2 tabs)] Route: PO; [facility] 15:57 Follow up: Response: Pt left department before re-evaluation is appropriate [facility] Signatures: Dispatcher [employer] EDMS Roshan Delgadillo RN RN jmk Scott, Debra, RN RN dls Ganter, LoriLee, Reg Reg lg Keyes, David PA-Scooby PA-Scooby [email or web address] Carmencita Mohr RN RN [facility] Shaji, Polly Ramirez RN kr3 The chart was reviewed and I authenticate all verbal orders and agree with the evaluation and treatment provided.Corrections: (The following items were deleted from the chart) 11:12 11:10 Home Meds: none; vincenzo loya Attachments: 13:54 [facility] Payment Agreement lg 03/22 06:10 T-Sheet-- Draft Copy demetrius Chart Complete MTDD
--- NOTE | 2016-03-24 17:17 | EDDOCDS ---
Physician Documentation [facility] Name: Kim Wells Age: 20 yrs Sex: Female : 1995 Arrival Date: 03/21/2016 Time: 10:56 Bed I3 / M3 Private MD: Ashu Barbosa Disposition: 03/21/16 15:25 Discharged to Home/Self Care. Impression: Low back pain - with renal cysts and [place] gallbladder stone, Urinary tract infection, site not specified. - Condition is Stable. - Discharge Instructions: Back Pain, Adult, Urinary Tract Infection, [id number], Back Pain, Adult, [id number]. - Prescriptions for Cipro 500 mg Oral Tablet - take 1 tablet by ORAL route every 12 hours; 14 tablet. Pyridium 200 mg Oral Tablet - take 1 tablet by ORAL route every 8 hours for 3 days; 9 tablet. Tylenol 325 mg Oral Tablet - take 2 tablet by ORAL route every 6 hours as needed; 1 bottle. Baclofen 10 mg Oral Tablet - take 1 tablet by ORAL route 3 times per day; 20 tablet. - Medication Reconciliation, Local Pharmacy Hours form. - Follow up: Ashu Barbosa DO; When: 1 - 2 days; Reason: Continuance of care. Follow up: Hema Cook DO; When: 4 - 5 days; Reason: Continuance of care. Follow up: Emergency Department; When: As needed; Reason: Worsening of conditions. - Problem is new. - Symptoms have improved. Historical: - Allergies: no known allergies; - Home Meds: 1. control patch - Social history: Smoking status: Patient uses tobacco products, light tobacco smoker. No barriers to communication noted, The patient speaks fluent Khmer. - Family history: Not pertinent. - : The pt / caregiver states he / she is not on anticoagulants. Home medication list is obtained from the patient. - Exposure Risk Screening:: None identified. 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 2 in. (157.48 cm) (R); 12:32 Pain 4/10; kr3 13:15 Temp 100.0; jam1 15:54 BP 114 / 62; Pulse 104; Resp 16; Temp 100.2; Pulse Ox 98% ; Pain 5/10; cjh 10:57 Body Mass Index 24.33 (60.33 kg, 157.48 cm) dd6 MDM: 11:39 Financial registration complete. lg 11:43 Ondansetron 4 mg IVP once ordered. dk1 11:43 IV Saline Lock ordered. dk1 11:44 morphine 2 mg IVP once ordered. dk1 11:44 NS 0.9% 1000 ml IV at bolus once ordered. dk1 11:45 Basic Metabolic Profile Ordered. EDMS 11:45 CBC with Diff Ordered. EDMS 11:45 Urinalysis Ordered. EDMS 11:45 UCG- In Lab Ordered. EDMS 11:45 Urine Culture Ordered. EDMS 12:25 Basic Metabolic Profile Reviewed. dk1 12:25 CBC with Diff Reviewed. dk1 12:25 Urinalysis Reviewed. dk1 12:25 UCG- In Lab Reviewed. dk1 12:26 US Renal Ordered. EDMS 13:36 morphine 2 mg IVP once ordered. dk1 13:36 Ciprofloxacin 400 mg IVPB at 200 mL/hr once over 60 mins ordered. dk1 13:36 -Blood Culture (Adults Only), peripheral from different site, or from device/port/PICC dk1 etc. if present ordered. 13:37 -Blood Culture Ordered. EDMS 13:54 [facility] Payment Agreement was scanned into [employer] and attached to record. lg 14:12 BLOOD CULTURES Ordered. EDMS 15:10 -Blood Culture (Adults Only), peripheral from different site, or from device/port/PICC [facility] etc. if present complete. 15:20 US Renal Reviewed. dk1 15:43 Acetaminophen Tablet 650 mg PO once ordered. dk1 03/22 06:10 T-Sheet-- Draft Copy was scanned into [employer] and attached to record. lja Administered Medications: 03/21 12:01 Drug: Ondansetron 4 mg [ondansetron HCl 2 mg/mL intravenous solution (2 mL)] Route: kr3 IVP; Site: left antecubital; 12:32 Follow up: Response: Nausea is decreased kr3 12:01 Drug: morphine 2 mg [morphine 2 mg/mL intravenous cartridge (1 mL)] Route: IVP; Site: kr3 left antecubital; 12:32 Follow up: Pain 06/27 Adult; Response: Pain is decreased [facility] 12:01 Drug: NS 0.9% 1000 ml [sodium chloride 0.9 % intravenous solution] Route: IV; Rate: kr3 bolus; Site: left antecubital; 13:46 Follow up: IV Status: Completed infusion; IV Intake: 1000ml kr3 13:50 Drug: morphine 2 mg Route: IVP; Site: left antecubital; [facility] 14:37 Follow up: Response: Confirmed pt not driving.; No Adverse Reaction; Pain is decreased; [facility] 06/27 14:10 Drug: Ciprofloxacin 400 mg [ciprofloxacin 400 mg/200 mL in 5 % dextrose intravenous kr3 piggyback] Route: IVPB; Rate: 200 mL/hr; Infused Over: 60 mins; Site: left antecubital; 15:52 Drug: Acetaminophen 650 mg [acetaminophen 325 mg tablet (2 tabs)] Route: PO; [facility] 15:57 Follow up: Response: Pt left department before re-evaluation is appropriate [facility] Signatures: Dispatcher [employer] EDMS Roshan Delgadillo RN RN jmk Scott, Debra, RN RN dls Ganter, LoriLee, Reg Reg lg Keyes, David PA-Scooby PA-Scooby [email or web address] Carmencita Mohr RN RN [facility] Shaji, Polly Ramirez RN kr3 The chart was reviewed and I authenticate all verbal orders and agree with the evaluation and treatment provided.Corrections: (The following items were deleted from the chart) 11:12 11:10 Home Meds: none; vincenzo loya Attachments: 13:54 [facility] Payment Agreement lg 03/22 06:10 T-Sheet-- Draft Copy demetrius Chart Complete MTDD
--- NOTE | 2016-03-24 17:17 | EDDOCDS ---
Nurse's Notes [facility] Name: Kim Wells Age: 20 yrs Sex: Female : 1995 Arrival Date: 03/21/2016 Time: 10:56 Bed I3 / M3 Private MD: Ashu Barbosa Diagnosis: Low back pain-with renal cysts and [place] gallbladder stone;Urinary tract infection, site not specified Presentation: 03/21 11:08 Presenting complaint: Patient states: Pt presents with right sided flank pain x one dls week getting worse every day. Denies injury states she has urinary frequency. Acute neurological deficits are not present. Mechanism of Injury: No Mechanism of Injury. Adult Sepsis Screening: The patient does not have new or worsening altered mentation. Patient's respiratory rate is less than 22. Systolic blood pressure is greater than 100. Patient has a qSOFA score of 0- Negative Sepsis Screen. Suicide/Homicide risk assessment- the patient denies having any suicidal and/or homicidal ideations and does not present with any other emotional, behavioral or mental health complaints. Status: Patient is not a sales representative electric service or dependent. Transition of care: patient was not received from another setting of care. 11:08 Acuity: MACARIO Level 3 dls 11:08 Method Of Arrival: Walkin/Carried/Asstd dls Triage Assessment: 11:10 General: Appears uncomfortable, well developed, well nourished, Behavior is dls cooperative. Pain: Pain currently is 9 out of 10 on a pain scale. HIV screening NA for this visit Offered previously. 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 control patch - Social history: Smoking status: Patient uses tobacco products, light tobacco smoker. No barriers to communication noted, The patient speaks fluent Uzbek. - Family history: Not pertinent. - : The pt / caregiver states he / she is not on anticoagulants. Home medication list is obtained from the patient. - Exposure Risk Screening:: None identified. Screenin:06 Screening information is obtained from the patient. Fall risk: No risks identified. jmk Assistance ADL's: requires no assistance with activities of daily living. Abuse/DV Screen: The patient / caregiver reports he/she is: not in a situation that causes fear, pain or injury. Nutritional screening: No deficits noted. Advance Directives: Currently, there is no health care proxy. There is no active DNR order. There is no living will. There is no Power of Community Development Aide. Advance directive information has not previously been placed in an [facility] medical record. home support is adequate. Assessment: 12:04 General: Appears Restless with discomfort. writhing about and mother assisting with jmk changed in position. Indicates right flank pain. Without redness , swelling or ecchymosis.. abd soft and non distended with bowel sounds present x 4. Odd affect, Immature presentation. GI: Abdomen is flat, non- distended Bowel sounds present X 4 quads. Abd is soft and non tender X 4 quads. Musculoskeletal: No deficits noted. 12:32 Reassessment: aroused from sleep easily, reports pain 4/10 but still having some nausea.kr3 13:27 General: Appears in no apparent distress, comfortable, Behavior is cooperative, [facility] requesting crackers for mother, blankets for self, blanket and crackers provided, water bottle noted at patient bedside, reviewed NPO, reports pain in right side after ultrasound 6/10, provider informed. 14:10 Reassessment: Patient appears in no apparent distress at this time. talking on phone, kr3 mother remains in room. 14:36 General: assisted with equipement to get oob to BR, gait steady, ambulates without [facility] assist required. 15:07 General: Appears in no apparent distress, comfortable, Behavior is appropriate for age, cjh cooperative, family at bedside, patient states feeling much better, awaiting dispo, gingerale provided per patient request. 15:54 General: reviewed discharge instructions with patient, obtained provider to answer [facility] questions regarding surgical consult, patient denies other needs, declines offer of additional assistance with discharge. Vital Signs: 10:57 BP 114 / 73; Pulse 105; Resp 18 S; Temp 99.3(O); Pulse Ox 99% on R/A; Weight 60.33 kg dd6 (R); Height 5 ft. 2 in. (157.48 cm) (R); 12:32 Pain 4/10; kr3 13:15 Temp 100.0; jam1 15:54 BP 114 / 62; Pulse 104; Resp 16; Temp 100.2; Pulse Ox 98% ; Pain 5/10; cjh 10:57 Body Mass Index 24.33 (60.33 kg, 157.48 cm) dd6 Vitals: 10:57 Log In Time: March 21, 2016 at 10:55. dd6 ED Course: 10:57 Patient visited by Himanshu Thompson PCA. dd6 10:57 Ashu Barbosa DO is Private Physician. dd6 10:57 Patient moved to Waiting dd6 10:58 Patient moved to Pre RCE dd6 11:09 Triage Initiated dls 11:33 Tyrone Mcgarry PA-C is PHCP. dk1 11:33 Nano Pearson MD is Attending Physician. dk1 11:33 Patient moved to Triage 3 kcs 11:34 Patient visited by Tyrone Mcgarry PA-C. dk1 11:46 Patient moved to I3 / M3 kcs 12:06 The patient / caregiver is instructed regarding the plan of care and ED course. jmk 12:06 Inserted saline lock: 20 gauge in left antecubital area. jmk 12:07 Patient visited by Roshan Delgadillo RN. jmk 12:32 Patient visited by Carmencita Castellanos PCA. jam1 12:40 Patient moved to Ultrasound sm5 13:05 Patient moved to I3 / M3 sm5 13:30 Patient visited by Carmencita Mohr RN. [facility] 13:50 US Renal Returned. EDMS 13:51 Patient visited by Carmencita Mohr RN. [facility] 13:54 [facility] Agreement was scanned into [employer] and attached to record. lg 14:13 Patient visited by Carmencita Castellanos PCA. jam1 15:07 Patient visited by Carmencita Mohr RN. [facility] 15:15 PO fluids given. jam1 15:24 Ashu Barbosa DO is Referral Physician. dk1 15:25 Hema Cook DO is Referral Physician. dk1 15:54 Discontinued lock intact, bleeding controlled, pressure dressing applied, No [facility] redness/swelling at site. No procedures done that require assistance. 03/22 06:10 T-Sheet-- Draft Copy was scanned into [employer] and attached to record. lja Administered Medications: 03/21 12:01 Drug: Ondansetron 4 mg [ondansetron HCl 2 mg/mL intravenous solution (2 mL)] Route: kr3 IVP; Site: left antecubital; 12:32 Follow up: Response: Nausea is decreased kr3 12:01 Drug: morphine 2 mg [morphine 2 mg/mL intravenous cartridge (1 mL)] Route: IVP; Site: kr3 left antecubital; 12:32 Follow up: Pain 410 Adult; Response: Pain is decreased kr3 12:01 Drug: NS 0.9% 1000 ml [sodium chloride 0.9 % intravenous solution] Route: IV; Rate: kr3 bolus; Site: left antecubital; 13:46 Follow up: IV Status: Completed infusion; IV Intake: 1000ml kr3 13:50 Drug: morphine 2 mg Route: IVP; Site: left antecubital; [facility] 14:37 Follow up: Response: Confirmed pt not driving.; No Adverse Reaction; Pain is decreased; [facility] 06/27 14:10 Drug: Ciprofloxacin 400 mg [ciprofloxacin 400 mg/200 mL in 5 % dextrose intravenous kr3 piggyback] Route: IVPB; Rate: 200 mL/hr; Infused Over: 60 mins; Site: left antecubital; 15:52 Drug: Acetaminophen 650 mg [acetaminophen 325 mg tablet (2 tabs)] Route: PO; [facility] 15:57 Follow up: Response: Pt left department before re-evaluation is appropriate [facility] Intake: 13:46 IV: 1000.00ml; Total: 1000.00ml. kr3 Order Results: Lab Order: Basic Metabolic Profile; SPEC'M 03/21/16 11:56 Test: GLUCOSE, FASTING; Value: 107; Range: 70-105; Abnormal: Above high normal; Units: MG/DL; Status: F Test: BLOOD UREA NITROGEN; Value: 5; Range: 7-18; Abnormal: Below low normal; Units: MG/DL; Status: F Test: CREATININE FOR GFR; Value: 0.74; Range: 0.55-1.02; Units: MG/DL; Status: F Test: SODIUM LEVEL; Value: 136; Range: 136-145; Units: MEQ/L; Status: F Test: POTASSIUM SERUM; Value: 3.5; Range: 3.5-5.1; Units: MEQ/L; Status: F Test: CHLORIDE LEVEL; Value: 100; Range: 98-107; Units: MEQ/L; Status: F Test: CARBON DIOXIDE LEVEL; Value: 28; Range: 21-32; Units: MEQ/L; Status: F Test: ANION GAP; Value: 8; Range: 8-16; Units: MEQ/L; Status: F Test: CALCIUM LEVEL; Value: 8.3; Range: 8.5-10.1; Abnormal: Below low normal; Units: MG/DL; Status: F Lab Order: CBC with Diff; SPEC'M 03/21/16 11:56 Test: WHITE BLOOD COUNT; Value: 10.3; Range: 4.0-10.0; Abnormal: Above high normal; Units: K/mm3; Status: F Test: RED BLOOD COUNT; Value: 4.36; Range: 4.00-5.40; Units: M/mm3; Status: F Test: HEMOGLOBIN; Value: 12.5; Range: 12.0-16.0; Units: g/dl; Status: F Test: HEMATOCRIT; Value: 37.3; Range: 36.0-47.0; Units: %; Status: F Test: MEAN CORPUSCULAR VOLUME; Value: 85.4; Range: 80.0-96.0; Units: fl; Status: F Test: MEAN CORPUSCULAR HEMOGLOBIN; Value: 28.6; Range: 27.0-33.0; Units: pg; Status: F Test: MEAN CORPUSCULAR HGB CONC; Value: 33.5; Range: 32.0-36.5; Units: g/dl; Status: F Test: RED CELL DISTRIBUTION WIDTH; Value: 13.8; Range: 11.5-14.5; Units: %; Status: F Test: PLATELET COUNT, AUTOMATED; Value: 357; Range: 150-450; Units: k/mm3; Status: F Test: NEUTROPHILS %; Value: 79.5; Range: 36.0-66.0; Abnormal: Above high normal; Units: %; Status: F Test: LYMPH %; Value: 12.9; Range: 24.0-44.0; Abnormal: Below low normal; Units: %; Status: F Test: MONO %; Value: 4.2; Range: 0.0-5.0; Units: %; Status: F Test: EOS %; Value: 1.3; Range: 0.0-3.0; Units: %; Status: F Test: BASO %; Value: 0.2; Range: 0.0-1.0; Units: %; Status: F Test: LARGE UNSTAINED CELL %; Value: 1.9; Range: 0.0-4.0; Units: %; Status: F Test: NEUTROPHILS #; Value: 8.2; Range: 1.8-7.7; Abnormal: Above high normal; Units: K/mm3; Status: F Test: LYMPH #; Value: 1.3; Range: 1.5-6.5; Abnormal: Below low normal; Units: K/mm3; Status: F Test: MONO #; Value: 0.4; Range: 0.0-0.8; Units: K/mm3; Status: F Test: EOS #; Value: 0.1; Range: 0.0-0.50; Units: K/mm3; Status: F Test: BASO #; Value: 0.0; Range: 0.0-0.2; Units: K/mm3; Status: F Test: LARGE UNSTAINED CELL #; Value: 0.2; Range: 0.0-0.4; Units: K/mm3; Status: F Lab Order: Urinalysis; SPEC'M 03/21/16 11:56 Test: APPEARANCE, URINE; Value: CLOUDY; Range: CLEAR; Abnormal: Above high normal; Status: F Test: COLOR, URINE; Value: YELLOW; Range: YELLOW; Status: F Test: PH,URINE; Value: 6.0; Range: 5.0-9.0; Units: UNITS; Status: F Test: SPECIFIC GRAVITY URINE AUTO; Value: 1.013; Range: 1.002-1.035; Status: F Test: PROTEIN, URINE AUTO; Value: 1+; Range: NEGATIVE; Abnormal: Above high normal; Units: mg/dL; Status: F Test: GLUCOSE, URINE (UA) AUTO; Value: NEGATIVE; Range: NEGATIVE; Units: mg/dL; Status: F Test: KETONE, URINE AUTO; Value: NEGATIVE; Range: NEGATIVE; Units: mg/dL; Status: F Test: UROBILINOGEN, URINE AUTO; Value: 0.2; Range: 0.0-2.0; Units: mg/dL; Status: F Test: BILIRUBIN, URINE AUTO; Value: NEGATIVE; Range: NEGATIVE; Status: F Test: NITRITE, URINE AUTO; Value: NEGATIVE; Range: NEGATIVE; Status: F Test: LEUKOCYTE ESTERASE, URINE AUTO; Value: 3+; Range: NEGATIVE; Abnormal: Above high normal; Status: F Test: BLOOD, URINE BLOOD; Value: 1+; Range: NEGATIVE; Abnormal: Above high normal; Status: F Test: SPERM, URINE AUTO; Range: NONE; Status: I Test: WBC, URINE AUTO; Value: TNTC; Range: 0-3; Abnormal: Above high normal; Units: /HPF; Status: F Test: RBC, URINE AUTO; Value: 38; Range: 0-3; Abnormal: Above high normal; Units: /HPF; Status: F Test: BACTERIA, URINE AUTO; Value: 3+; Range: NEGATIVE; Abnormal: Above high normal; Status: F Test: SQUAMOUS EPITHELIAL CELL UR AU; Value: 10; Range: 0-6; Units: /HPF; Status: F Test: MUCUS, URINE; Value: SMALL; Range: NEGATIVE; Status: F Test: HYALINE CAST, URINE AUTO; Value: 0; Range: 0-1; Units: /LPF; Status: F Lab Order: Urine Culture; SPEC'M 03/21/16 11:56 Test: URINE CULTURE; Value: ORGANISM 1: ESCHERICHIA COLI; Status: F Test: URINE CULTURE; Value: ESCHERICHIA COLI; Status: F Test: URINE CULTURE; Value: COLONY COUNT CFU/ml >100,000; Status: F Test: URINE CULTURE; Value: GRAM NEG SENSI - VITEK 80; Status: F Test: URINE CULTURE; Value: Method: VIT2; Status: F Test: URINE CULTURE; Value: EXTD BRD SPCTRM BETA LACTAMASE -; Status: F Test: URINE CULTURE; Value: TRIMETHOPRIM/SULFAMETHOXAZOLE <=20 S; Status: F Test: URINE CULTURE; Value: AMPICILLIN <=2 S; Status: F Test: URINE CULTURE; Value: GENTAMICIN <=1 S; Status: F Test: URINE CULTURE; Value: NITROFURANTOIN <=16 S; Status: F Test: URINE CULTURE; Value: CEFAZOLIN <=4 S; Status: F Test: URINE CULTURE; Value: LEVOFLOXACIN <=0.12 S; Status: F Test: URINE CULTURE; Value: TOBRAMYCIN <=1 S; Status: F Test: URINE CULTURE; Value: CEFTRIAXONE <=1 S; Status: F Test: URINE CULTURE; Value: CEFTAZIDIME <=1 S; Status: F Test: URINE CULTURE; Value: AMPICILLIN/SULBACTAM <=2 S; Status: F Test: URINE CULTURE; Value: PIPERACILLIN/TAZOBACTAM <=4 S; Status: F Test: URINE CULTURE; Value: AZTREONAM <=1 S; Status: F Test: URINE CULTURE; Value: ERTAPENEM <=0.5 S; Status: F Test: URINE CULTURE; Value: MEROPENEM <=0.25 S; Status: F Test: URINE CULTURE; Value: TIGECYCLINE <=0.5 S; Status: F Test: URINE CULTURE; Value: CEFEPIME <=1 S; Status: F Lab Order: UCG- In Lab; SPEC'M 03/21/16 11:56 Test: URINE PREG TEST; Value: NEGATIVE; Range: NEGATIVE; Status: F Lab Order: -Blood Culture; SPEC'M 03/21/16 13:56 Test: BLOOD CULTURE; Value: No growth after 48 hours . All specimens observed; Status: F Test: BLOOD CULTURE; Value: for 5 days. Results final at that time.; Status: F Test: BLOOD CULTURE; Status: F Test: BLOOD CULTURE; Value: No growth after 24 hours . All specimens observed; Status: F Test: BLOOD CULTURE; Value: for 5 days. Results final at that time.; Status: F Test: BLOOD CULTURE; Value: No Growth after 72 hours. All specimens observed; Status: F Test: BLOOD CULTURE; Value: for 7 days. Results final at that time.; Status: F Lab Order: BLOOD CULTURES; SPEC'M 03/21/16 13:56 Test: BLOOD CULTURE; Value: No growth after 48 hours . All specimens observed; Status: F Test: BLOOD CULTURE; Value: for 5 days. Results final at that time.; Status: F Test: BLOOD CULTURE; Status: F Test: BLOOD CULTURE; Value: No growth after 24 hours . All specimens observed; Status: F Test: BLOOD CULTURE; Value: for 5 days. Results final at that time.; Status: F Test: BLOOD CULTURE; Value: No Growth after 72 hours. All specimens observed; Status: F Test: BLOOD CULTURE; Value: for 7 days. Results final at that time.; Status: F Radiology Order: US Renal Test: US Renal REASON FOR EXAMINATION: Renal colic; Clinical: Renal colic.; ; Technique: Real time zambrano scale ultrasound examination using curved array; transducer.; ; Findings:; With the exception of small renal cysts, the kidneys are normal in contour, size,; and echogenicity without perinephric stranding, hydroureteronephrosis or; nephrolithiasis. Right kidney measures 13.4 x 5.1 x 3.8 cm with approximately; three cysts up to 12 mm. Left kidney measures to 0.6 x 4.6 x 5.9 cm with single; 9 mm cyst. Bilateral ureteral jets to the bladder noted. The bladder itself is; unremarkable.; ; Incidental cholelithiasis.; ; Impression:; 1. Essentially normal bilateral kidneys with few scattered cysts.; II. Cholelithiasis.; ; ; Signed by; Jermaine Vickers MD 03/21/2016 01:25 P; Outcome: 14:10 Ultrasound Study completed. kr3 15:25 Discharge ordered by Provider. dk1 15:54 Discharge Assessment: Patient awake, alert and oriented x 3. No cognitive and/or [facility] functional deficits noted. Patient verbalized understanding of disposition instructions. patient administered narcotics - yes. Pt provided with safe discharge. The following High Risk Discharge criteria are identified: None. Discharged to home ambulatory, with parent. with friend. Condition: good Condition: stable Condition: improved. Discharge instructions given to patient, Instructed on discharge instructions, follow up and referral plans. medication usage, Demonstrated understanding of instructions, medications, Pt was receptive of discharge instructions/ teaching. Prescriptions given X 4. Property :Personal belongings accompany Pt. 15:59 Patient left the ED. [facility] Addendum: 03/24/2016 15:22 Narrative: Urine culture results reviewed by ATIF Wilburn and no changes made. [facility] Signatures: Dispatcher [employer] Estee Winn RN RN kcs Knapp, Jean, RN RN jmk Peters, Mary, RN RN mcp Scott, Debra, RN RN dls Murphy, Jane, COSTUMER COSTUMER jam1 Lemuel Mario, Reg Reg lg [place], Charisse sm5 Polly Tony RN RN kr3 Tyrone Mcgarry, PA-C PA-C dk1 Himanshu Thompson, COSTUMER COSTUMER dd6 Carmencita Mohr,RN RN [facility] Arel, Jeannette romo Corrections: (The following items were deleted from the chart) 03/21 11:12 11:10 Home Meds: none; dls dls 13:29 13:27 General: Appears in no apparent distress, comfortable, Behavior is cooperative, [facility] requesting crackers for mother, blankets for self, reports pain in right side after ultrasound 08/27, provider informed. [facility] Chart Complete MTDD
== END 2016-03-21 15:59 | disposition home or self-care (01) ==
LOC: M ED 10:56
DX: N39.0 Urinary tract infection, site not specified (principal); N28.1 Cyst of kidney, acquired; K80.20 Calculus of gallbladder without cholecystitis without obstruction; M54.5 Low back pain; Z79.3 Long term (current) use of hormonal contraceptives
CPT/HCPCS: 36415; 76775; 80048; 81001; 84703; 85025; 87040; 87088; 87186; 96361; 96374; 96375; 96376; 99284; J0744; J2405

== ENCOUNTER 2016-09-15 19:13 | Emergency (ER) | payer BC, MEDICAID ==
[~2016-09-15] VITALS: Ht 157.5 cm; Wt 55.0 kg
[2016-09-15 20:12] LABS: BASO % 0.4 % (0.0-1.0); EOS # 0.2 K/mm3 (0.0-0.50); EOS % 1.8 % (0.0-3.0); LARGE UNSTAINED CELL # 0.1 K/mm3 (0.0-0.4); LARGE UNSTAINED CELL % 1.1 % (0.0-4.0); LYMPH # 2.2 K/mm3 (1.5-6.5); LYMPH % 22.3 % (24.0-44.0); MEAN CORPUSCULAR HEMOGLOBIN 29.9 pg (27.0-33.0); MEAN CORPUSCULAR HGB CONC 34.2 g/dl (32.0-36.5); MEAN CORPUSCULAR VOLUME 87.4 fl (80.0-96.0); MONO # 0.4 K/mm3 (0.0-0.8); NEUTROPHILS # 6.6 K/mm3 (1.8-7.7); NEUTROPHILS % 70.4 % (36.0-66.0); PLATELET COUNT, AUTOMATED 254 k/mm3 (150-450); RED CELL DISTRIBUTION WIDTH 12.7 % (11.5-14.5); WHITE BLOOD COUNT 9.3 K/mm3 (4.0-10.0)
[2016-09-15 20:27] LABS: CONTROL LINE HCG INT CTR LINE PRESENT
[2016-09-15 20:35] LABS: ALBUMIN 3.5 GM/DL (3.2-5.2); ALKALINE PHOSPHATASE 79 U/L (45-117); ALT/SGPT 14 U/L (12-78); AMYLASE 79 U/L (25-115); ANION GAP 8 MEQ/L (8-16); AST/SGOT 14 U/L (15-37); BILIRUBIN,DIRECT 0.1 MG/DL (0.0-0.2); BILIRUBIN,TOTAL 0.6 MG/DL (0.2-1.0); BLOOD UREA NITROGEN 8 MG/DL (7-18); CALCIUM LEVEL 8.5 MG/DL (8.5-10.1); CARBON DIOXIDE LEVEL 25 MEQ/L (21-32); CHLORIDE LEVEL 105 MEQ/L (98-107); CREATININE FOR GFR 0.57 MG/DL (0.55-1.02); GLUCOSE, FASTING 92 MG/DL (70-105); POTASSIUM SERUM 3.7 MEQ/L (3.5-5.1); SODIUM LEVEL 138 MEQ/L (136-145); TOTAL PROTEIN 7.4 GM/DL (6.4-8.2)
[2016-09-15] MEDS ORDERED: ISOVUE-370 76% 100ML VIAL (Q9967) As Ordered ONE (21:05)
--- NOTE | 2016-09-15 22:00 | REPUSA ---
CT of the abdomen and pelvis with contrast Clinical statement: Pain. Technique: Multiple axial CT images were obtained from the base of the lungs through the floor of the pelvis utilizing 5 mm axial slices after administration of nonionic intravenous contrast. Coronal an d sagittal reconstructions were also obtained. Comparison: None. Findings: Chest: The visualized lung bases are clear. Abdomen: The liver, spleen, pancreas, gallbladder, and adrenal glands are unremarkable. Multiple smal l low attenuation lesions are seen within both kidneys, consistent with simple cysts. The aorta is wi thin normal limits. There is no evidence of abdominal lymphadenopathy or ascites. Pelvis: The bowel is unremarkable, with no obstructive or inflammatory changes. The appendix is meme l. The urinary bladder is within normal limits. The other pelvic structures appear grossly intact. Th ere is no evidence of pelvic lymphadenopathy or ascites. Bones: There are no suspicious osseous abnormalities seen. Impression: Unremarkable CT examination of the abdomen and pelvis.
[2016-09-15] MEDS ORDERED: KETOROLAC 30 MG/ML VIAL (J1885) IV ONE (22:15)
[2016-09-15 22:35] VITALS: BP 131/74
--- NOTE | 2016-09-16 07:57 | REP ---
Clinical: Hemoptysis . Comparison: None. Technique: PA and lateral. Findings: The mediastinum and cardiac silhouette are normal. The lung ring are clear and without acute consolidation, effusion, or pneumothorax. The skeletal structures are intact and normal. Impression: 1. No acute cardiopulmonary process. Signed by Jermaine Vickers MD 09/16/2016 07:49 A
== END 2016-09-15 22:36 | disposition home or self-care (01) ==
LOC: EDBD 19:13 → M ED 19:13
DX: R10.9 Unspecified abdominal pain (principal); N28.1 Cyst of kidney, acquired; F31.9 Bipolar disorder, unspecified; Z87.891 Personal history of nicotine dependence
CPT/HCPCS: 36415; 71020; 74177; 80048; 80076; 81001; 82150; 83690; 84703; 85025; 87086; 96374; 99284; J1885; Q9967

== ENCOUNTER → 2017-02-08 | Outpatient (CLI) | payer BC, MEDICAID ==
[2017-02-08 17:58] LABS: BASO % 0.4 % (0.0-1.0); EOS # 0.1 10^3/uL (0.0-0.50); EOS % 1.1 % (0.0-3.0); IMMATURE GRANULOCYTE % 0.4 % (0-0); LYMPH % 23.6 % (24.0-44.0); MEAN CORPUSCULAR HEMOGLOBIN 30.2 pg (27.0-33.0); MEAN CORPUSCULAR HGB CONC 34.1 g/dl (32.0-36.5); MEAN CORPUSCULAR VOLUME 88.6 fl (80.0-96.0); MONO # 0.7 10^3/uL (0.0-0.8); MONO % 8.2 % (0.0-5.0); NEUTROPHILS # 5.5 10^3/uL (1.8-7.7); NEUTROPHILS % 66.3 % (36.0-66.0); PLATELET COUNT, AUTOMATED 290 10^3/uL (150-450); RED CELL DISTRIBUTION WIDTH 12.6 % (11.5-14.5); WHITE BLOOD COUNT 8.3 10^3/uL (4.0-10.0)
[2017-02-13 14:57] LABS: HBsAg Prenatal NEGATIVE (NEGATIVE)
== END ==
LOC: M SMT 14:53
PROVIDERS: ATTEND Specialist
DX: Z36.89 Encounter for other specified antenatal screening (principal); Z3A.08 8 weeks gestation of pregnancy

== ENCOUNTER 2017-02-15 18:50 | Emergency (ER) | payer BC, MEDICAID ==
[~2017-02-15] VITALS: Ht 157.5 cm; Wt 60.9 kg
[2017-02-15 21:23] VITALS: BP 123/56
== END 2017-02-15 21:23 | disposition home or self-care (01) ==
LOC: M ED 18:50
DX: O99.512 Diseases of the respiratory system complicating pregnancy, second trimester (principal); J10.1 Influenza due to other identified influenza virus with other respiratory manifestations; Z3A.13 13 weeks gestation of pregnancy

== ENCOUNTER → 2017-04-10 | Outpatient (CLI) | payer BC, MEDICAID | LOC: M SMT 08:01 | DX: Z36.89 Encounter for other specified antenatal screening (principal); Z3A.21 21 weeks gestation of pregnancy | CPT/HCPCS: 76811 ==

== ENCOUNTER → 2017-05-01 | Outpatient (CLI) | payer BC, MEDICAID | LOC: M SMT 07:57 | DX: Z34.82 Encounter for supervision of other normal pregnancy, second trimester (principal); Z3A.23 23 weeks gestation of pregnancy ==

== ENCOUNTER → 2017-06-06 | Outpatient (CLI) | payer BC, MEDICAID ==
[2017-06-06 13:30] LABS: BASO # 0.1 10^3/uL (0.0-0.2); BASO % 0.5 % (0.0-1.0); EOS # 0.2 10^3/uL (0.0-0.50); HEMATOCRIT 32.5 % (36.0-47.0); HEMOGLOBIN 10.7 g/dl (12.0-16.0); IMMATURE GRANULOCYTE % 2.3 % (0-3.0); LYMPH # 1.6 10^3/uL (1.5-6.5); LYMPH % 14.5 % (24.0-44.0); MEAN CORPUSCULAR HEMOGLOBIN 30.5 pg (27.0-33.0); MEAN CORPUSCULAR HGB CONC 32.9 g/dl (32.0-36.5); MEAN CORPUSCULAR VOLUME 92.6 fl (80.0-96.0); MONO # 0.5 10^3/uL (0.0-0.8); MONO % 4.7 % (0.0-5.0); NEUTROPHILS # 8.2 10^3/uL (1.8-7.7); PLATELET COUNT, AUTOMATED 219 10^3/uL (150-450); RED BLOOD COUNT 3.51 10^6/uL (4.00-5.40); RED CELL DISTRIBUTION WIDTH 12.8 % (11.5-14.5); WHITE BLOOD COUNT 10.8 10^3/uL (4.0-10.0)
[2017-06-06 13:59] LABS: GLUCOSE CHALLENGE TEST 1 HOUR 120 MG/DL (LESS THAN 140)
== END ==
LOC: M SMT 08:21
DX: Z34.82 Encounter for supervision of other normal pregnancy, second trimester (principal)
CPT/HCPCS: 82950

== ENCOUNTER 2017-07-09 02:48 | Emergency (ER) | payer BC, MEDICAID | END 2017-07-09 04:57 | disposition left against medical advice (07) | LOC: M ED 02:48 | DX: Z53.21 Procedure and treatment not carried out due to patient leaving prior to being seen by health care provider (principal) ==

== ENCOUNTER 2017-07-10 12:52 | Emergency (ER) | payer BC, MEDICAID | END 2017-07-10 14:12 | disposition home or self-care (01) | LOC: M ED 12:52 | DX: O99.613 Diseases of the digestive system complicating pregnancy, third trimester (principal); K04.7 Periapical abscess without sinus; O99.343 Other mental disorders complicating pregnancy, third trimester; F31.9 Bipolar disorder, unspecified; F90.9 Attention-deficit hyperactivity disorder, unspecified type; O99.333 Smoking (tobacco) complicating pregnancy, third trimester; F17.200 Nicotine dependence, unspecified, uncomplicated; Z3A.33 33 weeks gestation of pregnancy | CPT/HCPCS: 99282 ==

== ENCOUNTER → 2017-08-03 | Outpatient (REF) | payer BC, MEDICAID | LOC: M LAB REF 13:41 | DX: Z34.83 Encounter for supervision of other normal pregnancy, third trimester (principal) | CPT/HCPCS: 87081 ==

== ENCOUNTER 2017-08-19 02:21 | Outpatient (CLI) | payer BC, MEDICAID | END 2017-08-19 06:58 | disposition home or self-care (01) | LOC: M LDO 02:21 | DX: O36.8130 Decreased fetal movements, third trimester, not applicable or unspecified (principal); O47.1 False labor at or after 37 completed weeks of gestation; Z3A.39 39 weeks gestation of pregnancy | CPT/HCPCS: 59025 ==

== ENCOUNTER 2017-08-29 16:34 | Inpatient (IN) | payer BC, MEDICAID ==
[2017-08-29] MEDS: LACTATED RINGER'S 1000 ML IV (17:21)
[2017-08-29] MEDS: LR 1,000 ML IV (17:21)
[2017-08-29] MEDS: miSOPROStol 50 MCG 1/2 TAB (S0191) PO ×2 (18:26→22:15)
[2017-08-29 18:40] LABS: HEMATOCRIT 34.1 % (36.0-47.0); HEMOGLOBIN 10.9 g/dl (12.0-15.5); MEAN CORPUSCULAR HEMOGLOBIN 27.8 pg (27.0-33.0); PLATELET COUNT, AUTOMATED 252 10^3/uL (150-450); RED BLOOD COUNT 3.92 10^6/uL (4.00-5.40); RED CELL DISTRIBUTION WIDTH 14.6 % (11.5-14.5); WHITE BLOOD COUNT 12.1 10^3/uL (4.0-10.0)
[2017-08-29] MEDS ORDERED: FENTANYL 2MCG/ML ROPIVACAINE 0.2% IN 0.9% NACL 200ML IVBAG As Ordered (23:19)
[2017-08-30] MEDS ORDERED: REFRIGERATOR IV KEYS XX (00:30)
[2017-08-30] MEDS ORDERED: EPIDURAL COMMENT XX (00:30)
[2017-08-30] MEDS ORDERED: EPIDURAL/PCA KEYS XX (00:30)
[2017-08-30] MEDS ORDERED: FENTANYL/ROPIVACAINE/NACL BAG 200 ML EPIDURAL (00:30)
[2017-08-30] MEDS ORDERED: ONDANSETRON 4MG/2ML VIAL (J2405) IV (00:30)
[2017-08-30] MEDS ORDERED: NALOXONE INJ 0.4 MG/1 ML VIAL (J2310) IV (00:30)
[2017-08-30] MEDS ORDERED: diphenhydrAMINE INJ 50MG/ML VIAL (J1200) IV (00:30)
[2017-08-30] MEDS ORDERED: LACTATED RINGER'S 1000 ML IV (00:30)
[2017-08-30] MEDS ORDERED: ePHEDrine SULFATE 25 MG/5 ML(5MG/ML) SYRINGE As Ordered (01:01)
[2017-08-30] MEDS: ePHEDrine SULFATE 25 MG/5 ML(5MG/ML) SYRINGE IV (01:10)
[2017-08-30] MEDS: LR 1,000 ML IV (01:21)
[2017-08-30] MEDS ORDERED: OXYTOCIN DRIP 30 UNITS in APPROPRIATE DILUENT 1 EA IV ×2 (04:15→06:03)
[2017-08-30] MEDS ORDERED: DIBUCAINE 1% OINTMENT 30GM TOP (06:15)
[2017-08-30] MEDS ORDERED: RHOGAM 300 MCG (1500 IU) INJ (J2790) IM (06:15)
[2017-08-30] MEDS ORDERED: MOM 30ML SUSPENSION UDC PO (06:15)
[2017-08-30] MEDS ORDERED: MEASLES,MUMPS,RUBELLA VACCINE INJ (MMR-II) (90707) SC (06:15)
[2017-08-30] MEDS ORDERED: ANUSOL HC CREAM 30GM TOP (06:15)
[2017-08-30] MEDS ORDERED: METHYLERGONOVINE MALEATE 0.2 MG TAB PO (06:15)
[2017-08-30] MEDS ORDERED: DOCUSATE SODIUM 100 MG CAP PO (06:15)
[2017-08-30] MEDS: IBUPROFEN 800 MG TAB PO ×2 (07:35→16:01)
[2017-08-30] MEDS: PRENATAL VITAMINS CHEWABLE TABLET PO (08:47)
[2017-08-30] MEDS: ACETAMINOPHEN 500 MG TAB PO (14:03)
[2017-08-31] MEDS: PRENATAL VITAMINS CHEWABLE TABLET PO (08:44)
== END 2017-08-31 13:35 | disposition home or self-care (01) | DRG 560 ==
LOC: M LDI 16:34 → M OBS 08-30 07:59 → M LDI 16:47
PROVIDERS: Obstetrics & Gynecology
PROC: 3E0DXGC Introduction of Other Therapeutic Substance into Mouth and Pharynx, External Approach (ICD-10-PCS; 2017-08-29)
PROC: 10E0XZZ Delivery of Products of Conception, External Approach (ICD-10-PCS; principal; 2017-08-30)
PROC: 10907ZC Drainage of Amniotic Fluid, Therapeutic from Products of Conception, Via Natural or Artificial Opening (ICD-10-PCS; 2017-08-30)
DX: O48.0 Post-term pregnancy (principal); O77.0 Labor and delivery complicated by meconium in amniotic fluid; Z37.0 Single live birth; Z3A.40 40 weeks gestation of pregnancy; O69.81X0 Labor and delivery complicated by cord around neck, without compression, not applicable or unspecified

== ENCOUNTER 2017-10-13 08:34 | Day surgery (SDC) | payer BC, MEDICAID ==
[2017-10-13] MEDS ORDERED: LIDOCAINE 2% INJ 100 MG/5 ML SDV (FOR ANES.) As Ordered (09:18)
[2017-10-13] MEDS ORDERED: PROPOFOL 200 MG/20 ML VIAL As Ordered ×2 (09:18→11:42)
[2017-10-13] MEDS ORDERED: ROCURONIUM BROMIDE 50 MG/5 ML VIAL As Ordered (09:18)
[2017-10-13] MEDS ORDERED: fentaNYL 250 MCG/5 ML INJECTION (J3010) As Ordered (09:18)
[2017-10-13] MEDS ORDERED: MIDAZOLAM INJ 2 MG/2 ML VIAL (J2250) As Ordered (09:19)
[2017-10-13 09:20] LABS: HEMATOCRIT 40.4 % (36.0-47.0); HEMOGLOBIN 13.1 g/dl (12.0-15.5); MEAN CORPUSCULAR HEMOGLOBIN 28.8 pg (27.0-33.0); MEAN CORPUSCULAR HGB CONC 32.4 g/dl (32.0-36.5); MEAN CORPUSCULAR VOLUME 88.8 fl (80.0-96.0); PLATELET COUNT, AUTOMATED 304 10^3/uL (150-450); RED BLOOD COUNT 4.55 10^6/uL (4.00-5.40); RED CELL DISTRIBUTION WIDTH 13.8 % (11.5-14.5)
[2017-10-13] MEDS: LR 1,000 ML IV (09:20)
[2017-10-13 09:28] LABS: CONTROL LINE HCG INT CTR LINE PRESENT; HCG, SERUM QUALITATIVE NEGATIVE (NEGATIVE)
[2017-10-13] MEDS: SILVER NITRATE APPLICATOR As Ordered (10:52)
[2017-10-13] MEDS ORDERED: dexameTHASONE 4 MG/ML 1ML VIAL (J1100) As Ordered (10:58)
[2017-10-13] MEDS ORDERED: PHENYLEPHRINE INJ 10MG/ML VIAL (J2370) As Ordered (11:07)
[2017-10-13] MEDS ORDERED: ePHEDrine SULFATE 25 MG/5 ML(5MG/ML) SYRINGE As Ordered (11:16)
[2017-10-13] MEDS ORDERED: HYDROmorphone HCL 2 MG/ML 1ML VIAL (J1170) As Ordered (11:16)
[2017-10-13] MEDS ORDERED: NEOSTIGMINE 10 MG/10 ML VIAL (J2710) As Ordered (11:17)
[2017-10-13] MEDS ORDERED: GLYCOPYRROLATE INJ 0.2 MG/ML 2 ML VIAL As Ordered ×2 (11:18)
[2017-10-13] MEDS ORDERED: ONDANSETRON 4MG/2ML VIAL (J2405) As Ordered (11:25)
[2017-10-13] MEDS ORDERED: KETOROLAC 60 MG/2 ML VIAL (J1885) As Ordered (11:25)
[2017-10-13] MEDS: BUPIVACAINE HCL 0.25% 30 ML VIAL As Ordered (11:45)
[2017-10-13] MEDS ORDERED: LR 1,000 ML IV ×2 (12:15→12:30)
[2017-10-13] MEDS ORDERED: ONDANSETRON 4MG/2ML VIAL (J2405) IV (12:30)
[2017-10-13] MEDS ORDERED: fentaNYL 100 MCG/2 ML INJECTION (J3010) IV (12:30)
== END 2017-10-13 13:40 | disposition home or self-care (01) ==
LOC: M SDC 08:34
DX: Z30.2 Encounter for sterilization (principal); Z79.899 Other long term (current) drug therapy
CPT/HCPCS: 58661

== ENCOUNTER 2017-10-13 16:45 | Emergency (ER) | payer BC, MEDICAID ==
[2017-10-13] MEDS: diphenhydrAMINE INJ 50MG/ML VIAL (J1200) IV ×2 (16:58)
[2017-10-13] MEDS: methylPREDNISolone INJ 125 MG/2 ML VIAL (J2930) IV ×2 (17:00)
[2017-10-13] MEDS: FAMOTIDINE INJ 20MG/2ML VIAL (S0028) IV ×2 (17:05)
[2017-10-13] MEDS: NS 1,000 ML IV ×2 (17:45)
[2017-10-13 17:46] LABS: BASO % 0.1 % (0.0-1.0); EOS % 0.1 % (0.0-3.0); HEMATOCRIT 40.1 % (36.0-47.0); IMMATURE GRANULOCYTE % 0.4 % (0-3.0); LYMPH # 0.8 10^3/uL (1.5-6.5); LYMPH % 6.9 % (24.0-44.0); MEAN CORPUSCULAR HEMOGLOBIN 28.5 pg (27.0-33.0); MEAN CORPUSCULAR HGB CONC 32.4 g/dl (32.0-36.5); MEAN CORPUSCULAR VOLUME 87.9 fl (80.0-96.0); MONO # 0.1 10^3/uL (0.0-0.8); NEUTROPHILS # 10.5 10^3/uL (1.8-7.7); NEUTROPHILS % 91.5 % (36.0-66.0); PLATELET COUNT, AUTOMATED 300 10^3/uL (150-450); RED BLOOD COUNT 4.56 10^6/uL (4.00-5.40); RED CELL DISTRIBUTION WIDTH 13.8 % (11.5-14.5); WHITE BLOOD COUNT 11.5 10^3/uL (4.0-10.0)
[2017-10-13 17:54] LABS: ANION GAP 10 MEQ/L (8-16); BLOOD UREA NITROGEN 7 MG/DL (7-18); CALCIUM LEVEL 8.7 MG/DL (8.5-10.1); CARBON DIOXIDE LEVEL 24 MEQ/L (21-32); CHLORIDE LEVEL 107 MEQ/L (98-107); CREATININE FOR GFR 0.74 MG/DL (0.55-1.30); GLOMERULAR FILTRATION RATE > 60.0 (>60); GLUCOSE, FASTING 131 MG/DL (70-100); POTASSIUM SERUM 3.8 MEQ/L (3.5-5.1); SODIUM LEVEL 141 MEQ/L (136-145)
== END 2017-10-13 18:23 | disposition home or self-care (01) ==
LOC: M ED 16:45
DX: M79.89 Other specified soft tissue disorders (principal); R42 Dizziness and giddiness; T50.905A Adverse effect of unspecified drugs, medicaments and biological substances, initial encounter; R56.9 Unspecified convulsions; Z87.442 Personal history of urinary calculi; O99.335 Smoking (tobacco) complicating the puerperium; F17.200 Nicotine dependence, unspecified, uncomplicated; Z98.890 Other specified postprocedural states
CPT/HCPCS: J1200

== ENCOUNTER 2021-10-22 09:28 | Emergency (ER) | payer MEDICAID ==
[~2021-10-22 09:28] MED LIST changes: -ACET50TA PO; +CLEO300C2 PO; +DULC100C PO; +MAPA500T2 PO; +PERC5TAB12 PO; +PERCOCET PO; +PRED20TA PO; +PRENTAB9 PO; +TYLE325T5 PO
== END 2021-10-22 09:40 | disposition left against medical advice (07) ==
LOC: M ED 09:28 → EDBD 09:28 → M ED 09:40
DX: Z53.21 Procedure and treatment not carried out due to patient leaving prior to being seen by health care provider (principal)

== ENCOUNTER 2024-11-11 01:47 | Emergency (ER) | payer MEDICAID ==
[~2024-11-11] VITALS: Ht 157.5 cm; Wt 53.3 kg
[2024-11-11 01:51] VITALS: BP 139/65; TEMP 98.3; O2SAT 100
[2024-11-11] MEDS ORDERED: AMOX875T2 PO (10:28)
== END 2024-11-11 02:58 | disposition left against medical advice (07) ==
LOC: M ED 01:47
DX: Z53.21 Procedure and treatment not carried out due to patient leaving prior to being seen by health care provider (principal)

== ENCOUNTER 2024-11-11 10:02 | Emergency (ER) | payer MEDICAID, SELFPAY ==
[~2024-11-11] VITALS: Ht 157.5 cm; Wt 52.8 kg
[2024-11-11 10:03] VITALS: BP 131/81; TEMP 99.1; O2SAT 98
[2024-11-11] MEDS ORDERED: AMOX875T2 PO (10:28)
== END 2024-11-11 10:33 | disposition home or self-care (01) ==
LOC: M ED 10:02
DX: K02.9 Dental caries, unspecified (principal); K03.81 Cracked tooth; I10 Essential (primary) hypertension; G47.30 Sleep apnea, unspecified; G40.909 Epilepsy, unspecified, not intractable, without status epilepticus; F17.200 Nicotine dependence, unspecified, uncomplicated; Z79.1 Long term (current) use of non-steroidal anti-inflammatories (NSAID); Z79.2 Long term (current) use of antibiotics; Z79.52 Long term (current) use of systemic steroids; Z79.899 Other long term (current) drug therapy